=== PATIENT | female | born 1980 | race Caucasian/White ===

== ENCOUNTER 2022-04-28 14:50 | Outpatient (REF) | payer OTHER, SELFPAY ==
--- NOTE | ~2022-04-28 | XR_ITS ---
EXAMINATION: XR thoracic spine 2V, XR lumbar spine 2-3V, XR cervical spine 2V CLINICAL INFORMATION: Cervicalgia COMPARISON: Cervical, thoracic, and lumbar spine radiographs 12/20/2015 TECHNIQUE: 3 views cervical spine; AP and lateral thoracic spine; AP and lateral views lumbar spine FINDINGS: Cervical spine: C1 to top of T1 are visible on the lateral view. No subluxation. No fracture or prevertebral soft tissue swelling. Atlantodens interval and C1-C2 alignment are maintained. Status post ACDF at C5-C6 with intact plate and screw fixation and solid ankylosis of the vertebral bodies. Mild disc degenerative changes at C4-C5 above the fused level with mild disc height loss, endplate sclerosis and proliferative change. Intervertebral disc space heights otherwise maintained. Thoracic spine: Normal alignment of the thoracic spine. No subluxation. No fracture. Intervertebral disc heights appear maintained. Limited visualization of the upper most thoracic spine on the lateral view due to overlying structures. Lumbar spine: Normal alignment of the lumbar spine. No subluxation or fracture. Vertebral body heights and intervertebral disc space heights are maintained. No pars defects. SI joints are congruent and intact. XR/XR cervical spine 2V IMPRESSION: 1. Status post ACDF at C5-C6 with intact plate and screw fixation and solid ankylosis of the vertebral bodies. 2. Mild disc degenerative changes at C4-C5. 3. No subluxation or fracture identified in the cervical, thoracic, or lumbar spine.
--- NOTE | ~2022-04-28 | XR_ITS ---
EXAMINATION: XR thoracic spine 2V, XR lumbar spine 2-3V, XR cervical spine 2V CLINICAL INFORMATION: Cervicalgia COMPARISON: Cervical, thoracic, and lumbar spine radiographs 12/20/2015 TECHNIQUE: 3 views cervical spine; AP and lateral thoracic spine; AP and lateral views lumbar spine FINDINGS: Cervical spine: C1 to top of T1 are visible on the lateral view. No subluxation. No fracture or prevertebral soft tissue swelling. Atlantodens interval and C1-C2 alignment are maintained. Status post ACDF at C5-C6 with intact plate and screw fixation and solid ankylosis of the vertebral bodies. Mild disc degenerative changes at C4-C5 above the fused level with mild disc height loss, endplate sclerosis and proliferative change. Intervertebral disc space heights otherwise maintained. Thoracic spine: Normal alignment of the thoracic spine. No subluxation. No fracture. Intervertebral disc heights appear maintained. Limited visualization of the upper most thoracic spine on the lateral view due to overlying structures. Lumbar spine: Normal alignment of the lumbar spine. No subluxation or fracture. Vertebral body heights and intervertebral disc space heights are maintained. No pars defects. SI joints are congruent and intact. XR/XR lumbar spine 2-3V IMPRESSION: 1. Status post ACDF at C5-C6 with intact plate and screw fixation and solid ankylosis of the vertebral bodies. 2. Mild disc degenerative changes at C4-C5. 3. No subluxation or fracture identified in the cervical, thoracic, or lumbar spine.
--- NOTE | ~2022-04-28 | XR_ITS ---
EXAMINATION: XR thoracic spine 2V, XR lumbar spine 2-3V, XR cervical spine 2V CLINICAL INFORMATION: Cervicalgia COMPARISON: Cervical, thoracic, and lumbar spine radiographs 12/20/2015 TECHNIQUE: 3 views cervical spine; AP and lateral thoracic spine; AP and lateral views lumbar spine FINDINGS: Cervical spine: C1 to top of T1 are visible on the lateral view. No subluxation. No fracture or prevertebral soft tissue swelling. Atlantodens interval and C1-C2 alignment are maintained. Status post ACDF at C5-C6 with intact plate and screw fixation and solid ankylosis of the vertebral bodies. Mild disc degenerative changes at C4-C5 above the fused level with mild disc height loss, endplate sclerosis and proliferative change. Intervertebral disc space heights otherwise maintained. Thoracic spine: Normal alignment of the thoracic spine. No subluxation. No fracture. Intervertebral disc heights appear maintained. Limited visualization of the upper most thoracic spine on the lateral view due to overlying structures. Lumbar spine: Normal alignment of the lumbar spine. No subluxation or fracture. Vertebral body heights and intervertebral disc space heights are maintained. No pars defects. SI joints are congruent and intact. XR/XR thoracic spine 2V IMPRESSION: 1. Status post ACDF at C5-C6 with intact plate and screw fixation and solid ankylosis of the vertebral bodies. 2. Mild disc degenerative changes at C4-C5. 3. No subluxation or fracture identified in the cervical, thoracic, or lumbar spine.
== END 2022-04-28 14:51 | disposition home or self-care (01) ==
LOC: HO.HMGCX 14:50
PROVIDERS: Visit Provider Nurse Practitioner Family
DX: M54.2 Cervicalgia (principal); M54.9 Dorsalgia, unspecified; V89.2XXA Person injured in unspecified motor-vehicle accident, traffic, initial encounter
CPT/HCPCS: 72040; 72070; 72100

== ENCOUNTER 2024-07-29 13:22 | Outpatient (AMB) | payer MEDICARE, OTHER, SELFPAY ==
--- NOTE | 2024-07-29 13:26 | MHC.OFFVIS ---
Vital Signs 07/29/24 13:29 Height 5 ft 1 in Weight 110 lb 0.171 oz BMI 20.8 BP 100/80 Blood Pressure Location Rt brachial Position Sitting Pulse 93 Pulse Source Pulse Oximeter Pulse Oximetry (%) 97 Oxygen Delivery Method Room Air Intake Visit Reasons: Intake Note: Patient presents today for an visit. Marketing Team Lead Required: No Accompanied by: Self / Same As Patient Allergies Sulfa (Sulfonamide Antibiotics) Allergy (Unknown, Verified 07/29/24 13:37) Hives HPI HPI : Details: She had c-spine surgery 05/2024 (x3). Prior history of diskectomy. After 2nd surgery when she was participating in physical therapy she developed paraesthesia in her arms with weakness. She was dropping things. After surgery paresthesia and strength has improved. off of NSAIDs and immunosupression for 3 months. Cleared to resume tx by surgeon today. She has had recurrent ulcers on her skin on the anterior chest and upper extremities. She has joint. In all her joints. No joint swelling. She was on Simponi infusion until her C-spine surgery. She required IV fluids with Simponi to prevent infusion reaction. IV fluids helped her POTS. While on Simponi she had palpitations and her infusion rate was decrease in increased. Review of Systems Const All systems reviewed & are unremarkable except as noted in HPI and below Physical Exam Vital Signs: Last Vital Signs Pulse 93 07/29/24 13:29 BP 100/80 07/29/24 13:29 Pulse Ox 97 07/29/24 13:29 Oxygen Delivery Method Room Air 07/29/24 13:29 BMI result Body Mass Index 20.8 Const Other: General: Comfortable CVS: RRR Respiratory: clear to auscultation bilaterally. Good respiratory effort Skin: Ulcers present on anterior chest and extremities MSK: Tender to palpate MCPs, PIPs of bilateral hands. She is able to ostomy care nurse my hands. Normal range of motion of upper extremity and lower extremity. Tender bilateral knees and ankles. No synovitis. Normal range of motion of lower extremities. Positive TIFFANY. Assessment & Plan Assessment & Plan (1) Behcet disease with multisystem involvement: Comment: Uncontrolled polyarthralgias and skin ulcers off of immunosuppressive therapy for C-spine surgery for 3 months. She had a visit with her orthopedic surgeon who has informed her that she can resume her regimen. Rheumatology history: Manifesting with oral/genital/intestinal/skin ulcers, polyarthralgias and sacroiliitis. Failed MMF, AZA, monotherapy with colchicine, monotherapy with methotrexate, prednisone for oral and skin ulcer management. Oral and skin ulcers have been controlled on combination Otezla and colchicine. 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 Right eye scleritis 2013. Left eye scleritis November 2010 (Dr. Hernandez [facility]). No confirmed uveitis. Left eye vision loss July 2004 unclear etiology after extensive evaluation with multiple ophthalmologists and neuro recreational programs director ([facility], [facility], [facility], local recreational programs director in [facility]). She has had a history of left trochanteric bursitis treated with cortisone injection May 2021. She has had sacroiliitis on MRI 2010. HLA B27 negative. Failed Remicade, Humira, Cimzia. Simponi Aria 2023-. Code(s): M35.2 - Behcet's disease Category: Medical Plan: Labs for disease and drug monitoring ordered. A fter lab results are back I will send prescription for her to resume colchicine 1.2 mg in the morning and 0.6 mg in the evening. She will then reduce dose of colchicine to 0.6 mg b.i.d. when skin ulcers are controlled. I will also send prescription for methotrexate 17.5 mg once weekly and leucovorin 5 mg the day after she takes methotrexate and diclofenac 50 mg b.i.d. She will need PA for Simponi 2 milligram/kilogram every 8 weeks IV infusion I am requesting records of clinic notes from 2023, infusion notes, results of HLA B51, HLA B27, QuantiFERON and hepatitis-B/C panel, MRI pelvis, MRI hip, [facility] Requesting C-spine x-ray from orthopedic surgeon's office post surgery Return to clinic in 3 months Orders: Orders Alanine Aminotransferase Today Z79.60 - skilled nursing (current) use of unspecified immunomodulators and immunosuppressants Complete Blood Count Auto Diff Today Z79.60 - predatory animal exterminator (current) use of unspecified immunomodulators and immunosuppressants Aspartate Amino Transferase Today Z79.60 - skilled nursing (current) use of unspecified immunomodulators and immunosuppressants T Spot TB Today M35.2 - Behcet's disease Sjogren's Antibodies Today H35.3190 - Nonexudative age-related macular degeneration, unspecified eye, stage unspecified Creatinine Today Z79.60 - predatory animal exterminator (current) use of unspecified immunomodulators and immunosuppressants Erythrocyte Sedimentation Rate Today Z79.899 - Other supervisor intermediates (current) drug therapy C Reactive Protein Today Z79.899 - Other residential (current) drug therapy Hepatitis B,C Profile Today M35.2 - Behcet's disease Coding Level of Care Code Est Pt Level 4 (83726) Complex EM visit Add On G2211 Diagnoses Behcet disease with multisystem involvement M35.2 Time Spent (min) 30
[2024-07-29 13:29] VITALS: BP 100/80; PULSE 93; O2SAT 97; BMI 20.8
--- OUTSIDE RECORDS SUMMARY | 2024-07-29 14:44 | XMS_ITS | Clinical Summary ---
Author Organization [facility] it Address [address] [place] [address] Care Team Providers Care Pit Clerk Name Role Phone Padmini Pierson MD Primary Care Provider [phone] Surgical History Surgery Date Site/Laterality Comments CHOLECYSTECTOMY PROCEDURE: [place] LAPAROSCOPY SURG CHOLECYSTECTOMY SECTION PROCEDURE: HISTORICAL DELIVERY OTHER SURGICAL HISTORY 2013 Left PROCEDURE: [place] UNLISTED PROCEDURE PELVIS/HIP JOINT; COMMENT: labral tear OTHER SURGICAL HISTORY - 2015 PROCEDURE: [place] ARTHRD ANT INTERBODY MIN DSC CRV BELOW C2 Medical History Medical History Date Comments Cataract 05/25/2019 DX:Cataract; COM MENT: On right Chronic GERD DX:Chronic GERD Rib fracture DX:Rib fracture Stable asthma DX:Stable asthma Ankylosing spondylitis (CMS/ HCC V24, CMS/HCC V28) DX:Ankylosing spondylitis (H CC) Behcet's disease (CMS/HCC V2 4, CMS/HCC V28) DX:Behcet's disease (HCC) Family History Medical History Relation Name Comments Other: adopted Daughter Other: IBS Father Coronary artery disease Maternal Grandfather Lung cancer Maternal Grandfather Other: autoimmune heart disease Mother Other: factor V leiden Mother Other: factor V leiden Sister Other: mouth ulcers Son 11 years Relation Name Status Comments Daughter Alive Father Maternal Grandfather Mother Sister Son Alive Social History Tobacco Use Types Packs/Day Years Used Date Smoking Tobacco: Former Smokeless Tobacco: Never Comments Unknown Sex and Gender Information Value Date Recorded Sex Assigned at Not on file Legal Sex Female 6:53 PM EST Gender Identity Not on file Sexual Orientation Not on file Obstetrics History Last Filed Vital Signs Vital Sign Reading Time Taken Comments Blood Pressure 100/70 11/27/2023 8:51 AM EDT Sit ting L Arm Pulse 65 11/27/2023 8:51 AM EDT Temperature - - Respiratory Rate - - Oxygen Saturation - - Inhaled Oxygen Concentration - - Weight 49.9 kg (110 lb) 11/27/2023 8:51 AM EDT Height 154.9 cm (5' 1 ) 11/27/2023 8:51 AM EDT Body Mass Index 20.78 11/27/2023 8:51 AM EDT Plan of Treatment Health Maintenance Due Date Last Done Comments Breast Cancer Screening 1982 COVID-19 Vaccine (#1) 06/29/1987 DTaP,Tdap,and Td Vaccines (1 - Tdap) 2001 Hepatitis B Vaccines (1 of 3 - 19+ 3-dose series) 2001 Cervical Cancer Screening: P ap Smear 06/29/2003 Cholesterol Screening (Lipid Panel) 03/03/2022 Depression Screening 03/03/2022 HIV Screening 03/03/2022 Hepatitis C Screening 03/03/2022 Social Influencers of Health Screening 03/03/2022 Hypertension/CHF/CAD Annual BMP Blood Test 01/13/2024 Influenza Vaccine (Season Ended) 2024 HIB Vaccines Aged Out No longer eligi ble based on patient's age to complete this topic HPV Vaccines Aged Out No longer eligi ble based on patient's age to complete this topic Hepatitis A Vaccines Aged Out No long er eligible based on patient's age to complete this topic IPV Vaccines Aged Out No longer eligi ble based on patient's age to complete this topic MMR Vaccines Aged Out No longer eligi ble based on patient's age to complete this topic Meningococcal ACWY Vaccine Aged Out N o longer eligible based on patient's age to complete this topic Meningococcal B Vaccine Aged Out No l onger eligible based on patient's age to complete this topic Pneumococcal Vaccine: Pediat rics (0 to 5 Years) and At-Risk Patients (6 to 64 Years) Aged Out No longer eligible b ased on patient's age to complete this topic RSV Immunization Patients Un meron 20 months Aged Out No longer eligible b ased on patient's age to complete this topic Varicella Vaccines Aged Out No longer eligible based on patient's age to complete this topic Care Teams Pit Clerk Relationship Specialty Start Date End Date Padmini Pierson MD [address] [place] [address] PCP - General Internal Medicine 11/27/17
== END 2024-07-29 14:22 | disposition home or self-care (01) ==
LOC: HO.RHES 13:23
PROVIDERS: PCP Nurse Practitioner Family; Visit Provider Internal Medicine Rheumatology
DX: M35.2 Behcet's disease (principal)
CPT/HCPCS: 99214; G2211

== ENCOUNTER 2024-07-29 13:22 | Outpatient (REF) | payer MEDICARE, OTHER, SELFPAY ==
--- OUTSIDE RECORDS SUMMARY | 2024-07-29 15:43 | XMS_ITS | Clinical Summary ---
Author Organization [facility] it Address [address] [place] [address] Care Team Providers Care Tank Assembler Name Role Phone Padmini Pierson MD Primary Care Provider [phone] Surgical History Surgery Date Site/Laterality Comments CHOLECYSTECTOMY [...] age to complete this topic Care Teams Tank Assembler Relationship Specialty Start Date End Date Padmini Pierson MD [address] [place] [address] PCP - General Internal Medicine 11/27/17
[2024-07-29 18:04] LABS: MANUAL DIFF FLAG NO
[2024-07-29 18:12] LABS: Basophils Percent Auto 0.3 % (0-2); Eosinophils Absolute Auto 0.4 X10*3/uL (0.0-0.4); Eosinophils Percent Auto 6.6 % (0-4); Hematocrit 36.5 % (37.0-47.0); Hemoglobin 11.9 g/dl (12.0-16.0); Imm Gran Abs Auto 0.01 X10*3/uL (0.00-0.03); Imm Gran Pct Auto 0.2 % (0.0-0.4); Lymphocytes Absolute Auto 2.7 X10*3/uL (1.2-4.9); Lymphocytes Percent Auto 41.9 % (20-40); Mean Corpuscular HGB Conc 32.6 g/dl (31.0-35.0); Mean Corpuscular Hemoglobin 29.8 pg (27.0-33.0); Mean Corpuscular Volume 91.3 fL (80.0-98.0); Mean Platelet Volume 11.2 fL (9.4-12.3); Monocytes Absolute Auto 0.5 X10*3/uL (0.1-1.2); Monocytes Percent Auto 8.5 % (2-11); Neutrophils Absolute Auto 2.7 x10*3/uL (2.0-8.3); Neutrophils Percent Auto 42.5 % (45-73); Platelet Count 295 X10*3/uL (160-400); Red Cell Distribution Width 12.8 % (11.0-16.0); White Blood Count 6.3 X10*3/uL (4.8-10.8)
[2024-07-29 18:38] LABS: Alanine Aminotransferase 19 U/L (0-31); Aspartate Amino Transferase 30 U/L (5-31); C Reactive Protein < 0.04 mg/dL (< or = 0.50); Estimated Glomerular Filt Rate > 60
[2024-07-29 18:53] LABS: Erythrocyte Sedimentation Rate 5 MM/HR (0-20)
[2024-07-30 08:15] LABS: HBS Num1 6.49 mIU/mL (0-7.99); HBc Num1 0.31 S/CO (0.00-0.79); HBsAGNum1 0.28 S/CO (0.00-0.99); Hepatitis B Core Antibody Nonreactive (Nonreactive); Hepatitis B Surface Antigen Negative (Negative); ~HepC Num1 0.13 S/CO (0.00-0.79); ~Hepatitis B Surface Antibody NONREACTIVE (Nonreactive); ~Hepatitis C Antibody Nonreactive (Nonreactive)
[2024-07-30 23:29] LABS: Antibody to SS-A Antigen <1.0 NEG AI (<1.0 NEG); Antibody to SS-B Antigen <1.0 NEG AI (<1.0 NEG)
[2024-08-01 11:13] LABS: TS Negative Control Passed; TS Panel A 0; TS Panel B 0; TS Positive Control Passed; TSpotTB Negative (Negative)
== END 2024-07-29 13:23 | disposition home or self-care (01) ==
LOC: HO.HKASLDS 13:22
PROVIDERS: Visit Provider Internal Medicine Rheumatology
DX: M35.2 Behcet's disease (principal); Z79.60 Long term (current) use of unspecified immunomodulators and immunosuppressants; Z79.899 Other long term (current) drug therapy; H35.3190 Nonexudative age-related macular degeneration, unspecified eye, stage unspecified
CPT/HCPCS: 36415; 82565; 84450; 84460; 85025; 85652; 86140; 86235; 86481; 86704; 86706; 86803; 87340; 99212

== ENCOUNTER 2025-02-17 12:45 | Outpatient (REF) | payer MEDICARE, MEDICAID, SELFPAY ==
--- OUTSIDE RECORDS SUMMARY | 2025-02-12 23:59 | XMS_ITS | Continuity of Care Document ---
Author Organization [facility] Address [address] [place] [address]- Care Team Providers Care Esters And Emulsifiers Supervisor Name Role Phone Padmini Pierson MD Primary Care Physician Encounter [facility] Date(s): 01/13/25 - 02/12/25 [facility] [address] [place], [place] [address] Encounter Type: Triage Allergies, Adverse Reactions, Alerts Substance Criticality Severity Reaction Reaction Severity Status Bactrim rash Active Glutens Active Lactose Active Immunizations Given and Recorded Vaccine Date Status Refusal Reason influenza virus vaccine, inactivated 1 01/05/25 Gi emerita influenza virus vaccine, inactivated 01/23/23 Give n influenza virus vaccine, inactivated 01/22/22 Krish rded influenza virus vaccine, inactivated 01/01/20 Krish rded influenza virus vaccine, inactivated 03/06/18 Give n influenza virus vaccine, inactivated 2 01/29/17 Gi emerita influenza virus vaccine, inactivated 3 01/22/16 Re corded influenza virus vaccine, inactivated 02/17/15 Give n influenza virus vaccine, inactivated 12/22/13 Give n influenza virus vaccine, inactivated 12/12/12 Give n influenza virus vaccine, inactivated 4 01/04/12 Gi emerita influenza virus vaccine, inactivated 5 03/16/11 Gi emerita influenza virus vaccine, inactivated 6 01/16/10 Gi emerita SARS-CoV-2 mRNA (fkwmbum-msde-rwgce) vax 07/28/21 Recorded SARS-CoV-2 (COVID-19) mRNA BNT-162b2 vac 01/02/21 Recorded SARS-CoV-2 (COVID-19) mRNA BNT-162b2 vac 06/20/20 Recorded SARS-CoV-2 (COVID-19) mRNA BNT-162b2 vac 05/30/20 Recorded tetanus-diphtheria toxoids (Td) 06/10/18 Given Influenza Virus Vaccine (oldterm) 7 01/18/09 Given Influenza Virus Vaccine (oldterm) 8 01/26/08 Given Tet/Diphth/Acel, Pertussis (oldterm) 9 01/26/08 Gi emerita 1Result Comment: [facility] [id number] 2Result Comment: [01/29/2017] 2016-2017FLU VACCINE [facility] [id number] 3Result Comment: [04/23/2016] PER PT 4Admin Note: [facility] 5Admin Note: PER PT 6Admin Note: per pt 7Admin Note: per pt other Md 8Admin Note: sonofi-pt meets criteria/no incedent/pt denies allergy to flu injection. pt also statesno flu symptoms 9Admin Note: OFFERED/ DECLINED Medications 25G x 1 inch Bancroft 25G x 1 inch Bancroft, See Instructions, # 15 each, Refills 3, Tot. Refills 3, Maintenance, Pt to use 1 syringe weekly x 4 weeks to administer Vitamin B12, then 1 syringe monthly thereafter. dx: E53.8, 03/24/24 12:23:00 PM EST, Supply, 155, cm, 03/24/24 11:51:00 EST, Height, 50.4, kg, 02/13/24 13:29:00 EST, Dry Weight Start Date: 03/24/24 Status: Ordered Medication Dispense Status: Completed Quantity: 15.0 Unit: each Total Allowed Fills: 4 Fills Dispensed: 0 3ML Syringe w/ safety needle 23Gx1 3ML Syringe w/ safety needle 23Gx1 , See Instructions, # 15 each, Refills 0, Tot. Refills 0, Maintenance, Pt to use 1 syringe weekly x 4 weeks to administer Vitamin B12, then 1 syringe monthly thereafter. dx: E53.8, 12/22/21 10:46:00 AM EDT, Supply, 155, cm, 12/22/21 10:03:00 EDT, Height, 52.4, kg, 10/10/20 11:13:00 EDT, Dry Weight Start Date: 12/22/21 Status: Ordered Medication Dispense Status: Completed Quantity: 15.0 Unit: each Total Allowed Fills: 1 Fills Dispensed: 0 colchicine 0.6 mg oral tablet Refills 0, Maintenance, 07/24/22 12:12:00 PM EDT, Partial fill upon patient request if the prescription is for a schedule II opioid drug. Start Date: 07/24/22 Status: Ordered Medication Dispense Status: Completed Total Allowed Fills: 1 Fills Dispensed: 0 cyanocobalamin 1000 mcg/ml injectable solution See Instructions, INJECT 1ML ONCE 1 WEEK FOR 4 WEEKS, THEN ONCE MONTHLY THEREAFTER, # 30 mL, 3 Refills, Maintenance, 01/05/25 12:15:00 PM EDT, [facility] #[id number], 155, cm, 01/05/25 11:48:00 EDT, Height, 49.4, kg, 01/05/25 11:48:00 EDT, Dry Weight Start Date: 01/05/25 Status: Ordered Medication Dispense Status: Completed Quantity: 30.0 Unit: mL Total Allowed Fills: 4 Fills Dispensed: 0 diazepam 5 mg oral tablet 5 mg, 1, tablet, By Mouth, Daily, for 28 days, # 28 tablet, Refills 0, Tot. Refills 0, Acute 03/02/25 8:59:00 PM EST, 02/02/25 8:59:00 PM EST, Route to Pharmacy Electronically, [facility] #[id number], Partial fill upon patient request if the prescription is for a schedule II opioid drug., 155, cm, 01/05/25 11:48:00 EDT, Height, 49.4, kg, 01/05/25 11:48:00 EDT, Dry Weight Start Date: 02/02/25 Stop Date: 03/02/25 Status: Ordered Medication Dispense Status: Completed Quantity: 28.0 Unit: tablet Total Allowed Fills: 1 Fills Dispensed: 0 diclofenac sodium 50 mg oral delayed release tablet 1 tablet = 50 mg, By Mouth, 2 times a day, # 60 tablet, 0 Refills, Maintenance, 08/10/24 2:41:00 PM EDT, [facility], Partial fill upon patient request if the prescription is for a schedule II opioid drug. Start Date: 08/10/24 Status: Ordered Medication Dispense Status: Completed Quantity: 60.0 Unit: tablet Total Allowed Fills: 1 Fills Dispensed: 0 duloxetine 30 mg oral enteric coated capsule 1 capsule, By Mouth, 2 times a day, # 180 capsule, 2 Refills, Maintenance, 10/28/24 10:30:00 AM EDT,[id number], 155, cm, 10/13/24 11:38:00 EDT, Height, 48, kg, 10/13/24 11:38:00 EDT, Dry Weight Start Date: 10/28/24 Status: Ordered Medication Dispense Status: Completed Quantity: 180.0 Unit: capsule Total Allowed Fills: 1 Fills Dispensed: 0 Fioricet oral capsule 1 capsule, By Mouth, 3 times a day, PRN as needed, # 30 capsule, 0 Refills, Maintenance, 05/04/24 12:00:00 PM EST, Capsule, [facility]/pharmacy #[id number], Partial fill upon patient request if the prescription is for a schedule II opioid drug., 1 capsule By Mouth 3 times a day,PRN:as needed, 155, cm, 05/04/24 11:38:00 EST, Height, 50.9, kg, 05/04/24 11:38:00 EST, Dry Weight Start Date: 05/04/24 Status: Ordered Medication Dispense Status: Completed Quantity: 30.0 Unit: capsule Total Allowed Fills: 1 Fills Dispensed: 0 Insulin Syringe, BD Ultra-Fine 1 cc 30 G x 12.7 mm (1/2in) See Instructions, # 60 each, Maintenance, use for b12 shots once a week then once a month, 09/20/21 1:51:00 PM EDT, Supply, 155, cm, 12/12/20 13:14:00 EDT, Height, 52.4, kg, 10/10/20 11:13:00 EDT, DryWeight Start Date: 09/20/21 Status: Ordered Medication Dispense Status: Completed Quantity: 60.0 Unit: each Total Allowed Fills: 1 Fills Dispensed: 0 leucovorin 5 mg oral tablet 1 tablet = 5 mg, Every Harjinder, 0 Refills, Maintenance, 09/20/21 1:47:00 PM EDT, Partial fill upon patient request if the prescription is for a schedule II opioid drug. Start Date: 09/20/21 Status: Ordered Medication Dispense Status: Completed Total Allowed Fills: 1 Fills Dispensed: 0 Lyrica 25 mg oral capsule 1 capsule = 25 mg, By Mouth, 3 times a day, ., # 90 capsule, 5 Refills, Maintenance, 01/05/25 12:23:00 PM EDT, Capsule, [facility] #[id number], Partial fill upon patient request if the prescription is for a schedule II opioid drug., 155, cm, 01/05/25 11:48:00 EDT, Height, 49.4, kg, 01/05/25 11:4 8:00 EDT, Dry Weight Start Date: 01/05/25 Status: Ordered Medication Dispense Status: Completed Quantity: 90.0 Unit: capsule Total Allowed Fills: 6 Fills Dispensed: 0 Indications: Ankylosing spondylitis of unspecified sites in spine; methotrexate 2.5 mg oral tablet 8 tablet = 20 mg, By Mouth, Every week, # 4 tablet, 0 Refills, Maintenance, 08/10/24 2:41:00 PM EDT,Tablet, Partial fill upon patient request if the prescription is for a schedule II opioid drug. Start Date: 08/10/24 Status: Ordered Medication Dispense Status: Completed Quantity: 4.0 Unit: tablet Total Allowed Fills: 1 Fills Dispensed: 0 metoclopramide 10 mg oral tablet TAKE 1 TABLET BY MOUTH EVERY 6 HOURS NEEDED FOR NAUSEA/VOMITING Start Date: 09/03/24 Status: Ordered Medication Dispense Status: Completed Total Allowed Fills: 1 Fills Dispensed: 0 midodrine 5 mg oral tablet 5 mg, 1, tablet, By Mouth, 2 times a day, Refills 0, Maintenance, 12/11/23 1:01:00 PM EDT, Partial fill upon patient request if the prescription is for a schedule II opioid drug. Start Date: 12/11/23 Status: Ordered Medication Dispense Status: Completed Total Allowed Fills: 1 Fills Dispensed: 0 mirtazapine 15 mg oral tablet 1 tablet = 15 mg, By Mouth, Daily at bedtime, # 30 tablet, 6 Refills, Maintenance, 10/13/24 12:24:00PM EDT, Tablet, [facility]/pharmacy #[id number], Partial fill upon patient request if the prescription is for a schedule II opioid drug., 155, cm, 10/13/24 11:38:00 EDT, Height, 48, kg, 10/13/24 11:38:00 EDT, DryWeight Start Date: 10/13/24 Status: Ordered Medication Dispense Status: Completed Quantity: 30.0 Unit: tablet Total Allowed Fills: 7 Fills Dispensed: 0 Indications: Major depressive disorder, recurrent, unspecified; morphine 15 mg/8 to 12 hr oral tablet, extended release 1 tablet = 15 mg, By Mouth, Every 12 hours, # 56 tablet, 0 Refills, Maintenance, 02/02/25 8:58:00 PMEST, ER Tablet, [facility] #[id number], Partial fill upon patient request if the prescription is for a schedule II opioid drug., 155, cm, 01/05/25 11:48:00 EDT, Height, 49.4, kg, 01/05/25 11:48:00 EDT, Dry Weight Start Date: 02/02/25 Stop Date: 03/02/25 Status: Ordered Medication Dispense Status: Completed Quantity: 56.0 Unit: tablet Total Allowed Fills: 1 Fills Dispensed: 0 Multivitamin 1 tablet, By Mouth, Daily, 0 Refills, Maintenance, 08/29/13 4:55:38 PM EDT Start Date: 08/29/13 Status: Ordered Medication Dispense Status: Completed Total Allowed Fills: 1 Fills Dispensed: 0 Narcan 4 mg/0.1 mL nasal spray 1 sprays = 4 mg, Nares, Both, Once, # 2 each, 0 Refills, Soft Stop, 06/01/24 3:49:00 PM EST, [facility]/pharmacy #[id number], Partial fill upon patient request if the prescription is for a schedule II opioid drug.,155, cm, 05/21/24 9:18:00 EST, Height, 49.7, kg, 05/21/24 9:18:00 EST, Dry Weight Start Date: 06/01/24 Status: Ordered Medication Dispense Status: Completed Quantity: 2.0 Unit: each Total Allowed Fills: 1 Fills Dispensed: 0 omeprazole 40 mg oral enteric coated capsule 1 capsule, By Mouth, Daily, # 90 capsule, 1 Refills, Maintenance, 05/23/23 12:33:00 PM EST, [id number], 155, cm, 05/01/23 10:02:00 EST, Height, 49.9, kg, 01/23/23 9:46:00 EDT, Dry Weight Start Date: 05/23/23 Status: Ordered Medication Dispense Status: Completed Quantity: 90.0 Unit: capsule Total Allowed Fills: 1 Fills Dispensed: 0 ProAir HFA 90 mcg/inh inhalation aerosol with adapter 1 puffs, Inhalation, Every 4 hours, PRN for wheezing, as needed for cough or wheezing, # 3 each, 11Refills, Maintenance, 04/30/12 8:55:51 AM EST, Aerosol, [facility]/pharmacy #[id number] Start Date: 04/30/12 Status: Ordered Medication Dispense Status: Completed Quantity: 3.0 Unit: each Total Allowed Fills: 12 Fills Dispensed: 0 Simponi 50 mg/0.5 mL subcutaneous solution 0.5 mL = 50 mg, Subcutaneous Injection, Every 30 days, # 1 each, 0 Refills, Maintenance, 01/10/24 11:58:00 AM EDT, Solution, Partial fill upon patient request if the prescription is for a schedule IIopioid drug. Start Date: 01/10/24 Status: Ordered Medication Dispense Status: Completed Quantity: 1.0 Unit: each Total Allowed Fills: 1 Fills Dispensed: 0 tiZANidine 4 mg oral capsule 1 capsule = 4 mg, By Mouth, 3 times a day, # 90 capsule, 0 Refills, Maintenance, 12/23/24 12:35:00 PM EDT, [facility] #[id number], 155, cm, 11/24/24 11:46:00 EDT, Height, 48.2, kg, 11/24/24 11:46:00 EDT, Dry Weight Start Date: 12/23/24 Status: Ordered Medication Dispense Status: Completed Quantity: 90.0 Unit: capsule Total Allowed Fills: 1 Fills Dispensed: 0 Tylenol 325 mg oral tablet 650 mg, 2, tablet, By Mouth, Every 6 hours, PRN, Refills 0, Maintenance, Pain , Mild, 10/15/20 7:47:00 AM EDT, Partial fill upon patient request if the prescription is for a schedule II opioid drug. Start Date: 10/15/20 Status: Ordered Medication Dispense Status: Completed Total Allowed Fills: 1 Fills Dispensed: 0 Vitamin C = 500 mg, By Mouth, Daily, 0 Refills, Maintenance, 08/29/13 4:56:07 PM EDT Start Date: 08/29/13 Status: Ordered Medication Dispense Status: Completed Total Allowed Fills: 1 Fills Dispensed: 0 Problem List Condition Confirmation Course Effective Dates Status H ealth Status Informant Labral tear of hip, degenerative Confirmed Active Adjustment disorder with anxiety Confirmed Active Ankylosing spondylitis Confirmed Active Asthma Confirmed Active Behcet's disease Confirmed Active Breast lump on left side at 8 o'clock position Confirmed 07/17/12 Active Cervical post-laminectomy syndrome Confirmed Active Cervical postlaminectomy syndrome Confirmed Active Cervical radiculitis s/p disectomy Confirmed Active Vitamin B12 deficiency Confirmed Active Common migraine Confirmed Active Conjunctivitis Confirmed Active Chronic, continuous use of opioids Confirmed Active Dysthymia Confirmed Active Healthy adult Confirmed Active Neuropathic pain, leg, bilateral Confirmed Active Post traumatic stress disorder (PTSD) Confirmed Active POTS (postural orthostatic tachycardia syndrome) Confirmed Active Social History Social History Type Response Smoking Status Never (less than 100 in lifetime) entered on: 05/21/24 Sexual Orientation Self described orien tation: ; Straight or heterosexual Sex Sex Representation Female (finding) Patient Care team information Care Team Personnel Name: Padmini Pierson MD Position: [facility] Physician - Primary Care Member Role: PCP Address: [address] [place] [address] Adult and Pediatric Medicine [address] Telecom: Name: Claudia Ashraf RN Position: [facility] RN Member Role: Primary Care Nurse Name: Matt Diallo RN Position: [facility] Outreach Member Role: Primary Care Nurse Name: Olman Wilson RN Position: [facility] Selwyn RN Member Role: Primary Care Nurse Name: Sammie Peter RN Position: [facility] SN Fitness Studies Teacher Member Role: Primary Care Nurse Care Team Related Persons Name: MARILIN THACKER Name: MARGARITO MCKEON Name: SINA MIRANDA Insurance Providers Guarantor name: MAITE MCKEON Health Plan Information #: 1 Payer: MEDICARE B Payer Identifier: NA Member Number: [id number] Group Number: NA Subscriber Identifier: NA Relationship to Subscriber: self Coverage Type: NA Coverage Verification Date: NA Telecom: NA Address: NA
[2025-02-17 13:02] LABS: MANUAL DIFF FLAG NO
[2025-02-17 14:01] LABS: Hematocrit 42.9 % (37.0-47.0); Hemoglobin 14.2 g/dl (12.0-16.0); Imm Gran Abs Auto 0.01 X10*3/uL (0.00-0.03); Imm Gran Pct Auto 0.1 % (0.0-0.4); Lymphocytes Absolute Auto 2.5 X10*3/uL (1.2-4.9); Mean Corpuscular HGB Conc 33.1 g/dl (31.0-35.0); Mean Corpuscular Hemoglobin 30.2 pg (27.0-33.0); Mean Corpuscular Volume 91.3 fL (80.0-98.0); NRBC Abs Auto 0.000 X10*3/uL (0.0-0.012); NRBC Pct Auto 0.0 /100WBC (0.0-0.2); Platelet Count 364 X10*3/uL (160-400); Red Blood Count 4.70 X10*6/uL (4.20-5.50); White Blood Count 7.6 X10*3/uL (4.8-10.8)
[2025-02-17 16:02] LABS: Alanine Aminotransferase 18 U/L (0-31); Aspartate Amino Transferase 21 U/L (5-31); Estimated Glomerular Filt Rate > 60
--- OUTSIDE RECORDS SUMMARY | 2025-02-18 00:30 | XMS_ITS | Encounter Summary ---
Author Organization [facility] Address [address] [place] [address] [address] [place] [address] Phone Care Team Providers Care Travel Accommodations Rater Name Role Phone Carol Briseno Unavailable [phone] Padmini Pierson MD Unavailable Jose Madsen DO Unavailable Cass Reyes PA-C Unavailable Padmini Pierson MD Primary Care Provider Encounter Details Date Type Department Care Team (Late st Contact Info) Description 02/07/2017 Ancillary Orders Virtual Department [address] [place] [address] Quentin Zamora PA [address] [place] [id number] [email or web address] Arthrodesis status Social History Tobacco Use Types Packs/Day Years Used Date Smoking Tobacco: Never Assessed Comments No Sex and Gender Information Value Date Recorded Sex Assigned at Not on file Legal Sex Female 7:57 PM EST Gender Identity Not on file Sexual Orientation Not on file documented as of this encounter Plan of Treatment Upcoming Encounters Date Type Department Care Team (Late st Contact Info) Description 03/10/2025 12:00 PM EST Office Visit [facility] Orthopaedic Spine [address] [facility], [address], [address] [place] [address] Tye Sandhu MD [address] [facility] [address] [place] [address] [email or web address] 03/10/2025 3:00 PM EST Office Visit [facility] in [address] [address] Surya Hardin MD [address] [facility], [address] [place] [address] [email or web address] documented as of this encounter Visit Diagnoses Diagnosis Arthrodesis status documented in this encounter Care Teams Travel Accommodations Rater Relationship Specialty Start Date End Date Padmini Pierson MD [address] [place] [id number] PCP - General 04/04/17 Carol Briseno PA [facility] [place] [address] Historical LMR Provider 01/17/17 2 Padmini Pierson MD [address] [place] [id number] Historical LMR Provider 01/17/17 Jose Madsen DO [address] [place] [address] Orthopedics & Sports Medicine, [place] [address] [email or web address] Historical LMR Provider 01/17/17 Cass Reyes PA-C 4 [facility] Orthopedics & Sports Medicine, [place] [address] Historical LMR Provider 01/17/17 documented as of this encounter Additional Source Comments The information contained in this document represents components of the legal health record. It is not the complete legal health record.[facility]
--- OUTSIDE RECORDS SUMMARY | 2025-02-18 00:30 | XMS_ITS | Encounter Summary ---
Author Organization [facility] Address Critical access hospital [facility] [address] [place] [address] Phone Care Team Providers Care Real Estate Branch Manager Name Role Phone Carol Briseno Unavailable [phone] Padmini Pierson MD Unavailable Jose Madsen DO Unavailable Cass Reyes PA-C Unavailable Padmini Pierson MD Primary Care Provider [phone] Encounter Details Date Type Department Care Team (Late st Contact Info) Description 09/09/2020 Procedure Pass [place] Admitting Dept - Virtual Department [address] [place] [phone] Social History Tobacco Use Types Packs/Day Years Used Date Smoking Tobacco: Former Cigarettes 0.3 1 1 - 01/25/2000 Smokeless Tobacco: Never Alcohol Use Standard Drinks/Week Comments Yes 2 (1 standard drink = 0.6 oz pur e alcohol) occ Comments No Sex and Gender Information Value Date Recorded Sex Assigned at Not on file Legal Sex Female 7:57 PM EST Gender Identity Not on file Sexual Orientation Not on file documented as of this encounter Plan of Treatment Upcoming Encounters Date Type Department Care Team (Late st Contact Info) Description 03/10/2025 12:00 PM EST Office [place] [facility] [place] [address] [facility], 3rd Floor, [address] [place] [address] Tye Sanduh MD [address] [facility] [address] [place] [address] [email or web address] 03/10/2025 3:00 PM EST Office Visit [facility] in [address] [address] Surya Hardin MD [address] [facility], [address] [place] [address] [email or web address] documented as of this encounter Visit Diagnoses Not on filedocumented in this encounter Care Teams Real Estate Branch Manager Relationship Specialty Start Date End Date Padmini Pierson MD [address] [place] [phone] PCP - General 04/04/17 Carol Briseno PA [facility] [place] [address] Historical LMR Provider 01/17/17 2 Padmini Pierson MD [address] [place] [phone] Historical LMR Provider 01/17/17 Jose Madsen DO [address] [place] [address] Orthopedics & Sports Medicine, [facility] [place] [address] Historical LMR Provider 01/17/17 Cass Reyes PA-C 4 [facility], [place] [address] Historical LMR Provider 01/17/17 documented as of this encounter Additional Source Comments The information contained in this document represents components of the legal health record. It is not the complete legal health record.[facility]
--- OUTSIDE RECORDS SUMMARY | 2025-02-18 00:30 | XMS_ITS | Encounter Summary ---
Author Organization [facility] Address [address] [place] [address] Phone Care Team Providers Care Sheet Cutting Operator Name Role Phone Carol Briseno Unavailable [phone] Padmini Pierson MD Unavailable Jose Madsen DO Unavailable [phone] Cass Reyes PA-C Unavailable [phone] Padmini Pierson MD Primary Care Provider [phone] Reason for Referral * MRI/CAT Scan - Closed Specialty Diagnoses / Procedures Referred By Letha damian Referred To Contact Radiology Diagnoses Derangement, knee internal, right Behcet's syndrome Procedures MRI Knee (Right) Quentin Zamora PA Phone: tel: fax: [email or web address] Referral ID Status Reason Start Date Expiration Date Visits Re quested Visits Authorized [id number] Closed 05/06/2020 10/31/2020 1 0 Encounter Details Date Type Department Care Team (Late st Contact Info) Description 05/04/2020 Ancillary Orders Virtual Department [address] [place] [address] Quentin Zamora PA [address] [place] [id number] [email or web address] Derangement, knee internal, right; Behcet's syndrome Social History Tobacco Use Types Packs/Day Years Used Date Smoking Tobacco: Former Cigarettes Q uit: 01/25/2000 Smokeless Tobacco: Never Comments No Sex and Gender Information Value Date Recorded Sex Assigned at Not on file Legal Sex Female 7:57 PM EST Gender Identity Not on file Sexual Orientation Not on file documented as of this encounter Plan of Treatment Upcoming Encounters Date Type Department Care Team (Late st Contact Info) Description 03/10/2025 12:00 PM EST Office Visit [facility] Orthopaedic Spine [address] [place] [address], 3rd Floor, [address] [place] [address] Tye Sandhu MD [address] [place] [address] [email or web address] 03/10/2025 3:00 PM EST Office Visit [facility] in [address] [address] Surya Hardin MD [address] [place] [address], [address] [place] [address] [email or web address] documented as of this encounter Results * MRI KNEE WITHOUT CONTRAST (RIGHT) (05/14/2020 8:07 AM EST) Anatomical Region Laterality Modality Knee Right Magnetic Resonan ce 05/14/2020 1:42 PM EST Impressions 05/14/2020 4:20 PM EST Subtotal ACL and MCL injuries, with involvement of the deep meniscofemoral fibers. Suggestion of associated MPFL sprain/partial tear. No meniscal tear. No chondral defect. Edema and low signal on T1-weighted images within the posterior lateral tibial plateau and posterior medial femoral condyle. Findings are most consistent with nondisplaced, microtrabecular fractures. Narrative 05/14/2020 4:20 PM EST TECHNIQUE: MRI KNEE WITHOUT CONTRAST (RIGHT) COMPARISON: No relevant comparison. FINDINGS: MEDIAL COMPARTMENT: No meniscal tear, cartilage defect, or subchondral bone marrow edema. LATERAL COMPARTMENT: No meniscal tear, cartilage defect, or subchondral bone marrow edema. PATELLOFEMORAL COMPARTMENT: No cartilage defect or subchondral bone marrow edema. TENDONS: Quadriceps, patellar and popliteus tendons intact. LIGAMENTS: There is increased signal and fiber irregularity in the mid substance of the anterior cruciate ligament, consistent with subtotal tear. Edema seen on both sides of the tibial collateral ligament, with discontinuity of the deep meniscofemoral fibers (6; 18), consistent with subtotal proximal MCL tear. Edema and fiber irregularity in the medial patellofemoral ligament (MPFL), which may represent sprain/partial tear. Lateral collateral ligament appears intact. BONE: Edema in the posterior proximal tibial plateau, with associated low signal on T1, which likely represents microtrabecular fracture. Similar signal characteristics are seen in the posterior medial femoral condyle. No marrow infiltration. JOINT: Circumferential joint line edema. Large joint effusion and mild synovitis. Trace Zuniga's cyst. Procedure Note Kiko Mann MD - 05/14/2020 TECHNIQUE: MRI KNEE WITHOUT CONTRAST (RIGHT) COMPARISON: No relevant comparison. FINDINGS: MEDIAL COMPARTMENT: No meniscal tear, cartilage defect, or subchondralbone marrow edema. LATERAL COMPARTMENT: No meniscal tear, cartilage defect, or subchondralbone marrow edema. PATELLOFEMORAL COMPARTMENT: No cartilage defect or subchondral bone marrowedema. TENDONS: Quadriceps, patellar and popliteus tendons intact. LIGAMENTS: There is increased signal and fiber irregularity in the midsubstance of the anterior cruciate ligament, consistent with subtotaltear. Edema seen on both sides of the tibial collateral ligament, withdiscontinuity of the deep meniscofemoral fibers (6; 18), consistent withsubtotal proximal MCL tear. Edema and fiber irregularity in the medialpatellofemoral ligament (MPFL), which may represent sprain/partial tear.Lateral collateral ligament appears intact. BONE: Edema in the posterior proximal tibial plateau, with associated lowsignal on T1, which likely represents microtrabecular fracture. Similarsignal characteristics are seen in the posterior medial femoral condyle.No marrow infiltration. JOINT: Circumferential joint line edema. Large joint effusion and mildsynovitis. Trace Zuniga's cyst. IMPRESSION: Subtotal ACL and MCL injuries, with involvement of the deep meniscofemoralfibers. Suggestion of associated MPFL sprain/partial tear. No meniscaltear. No chondral defect. Edema and low signal on T1-weighted images within the posterior lateraltibial plateau and posterior medial femoral condyle. Findings are mostconsistent with nondisplaced, microtrabecular fractures. Quentin ASIF IMG MR EXTREMITY Final Resu lt documented in this encounter Visit Diagnoses Diagnosis Derangement, knee internal, right Behcet's syndrome Derangement, knee internal, right Behcet's syndrome documented in this encounter Care Teams Sheet Cutting Operator Relationship Specialty Start Date End Date Padmini Pierson MD [address] [place] [address] PCP - General 04/04/17 Carol Briseno PA [facility] [place] [address] Historical LMR Provider 01/17/17 2 Padmini Pierson MD [address] [place] [address] Historical LMR Provider 01/17/17 Jose Madsen DO 4 [facility], [place] [address] Historical LMR Provider 01/17/17 Cass Reyes PA-C 4 [facility], [place] [address] Historical LMR Provider 01/17/17 documented as of this encounter Additional Source Comments The information contained in this document represents components of the legal health record. It is not the complete legal health record.[facility]
--- OUTSIDE RECORDS SUMMARY | 2025-02-18 00:30 | XMS_ITS | Encounter Summary ---
Author Organization [facility] Address [address] [place] [address] Phone Care Team Providers Care Hospice Manager Name Role Phone Carol Briseno Unavailable [phone] Padmini Pierson MD Unavailable Jose Madsen DO Unavailable Cass Reyes PA-C Unavailable [phone] Padmini Pierson MD Primary Care Provider [phone] Encounter Details Date Type Department Care Team (Late st Contact Info) Description 05/04/2020 Procedure Pass [facility], [address] [address] Social History Tobacco Use Types Packs/Day Years Used Date Smoking Tobacco: Former Cigarettes Q uit: 01/25/2000 Smokeless Tobacco: Never Comments No Sex and Gender Information Value Date Recorded Sex Assigned at Not on file Legal Sex Female 7:57 PM EST Gender Identity Not on file Sexual Orientation Not on file documented as of this encounter Last Filed Vital Signs Vital Sign Reading Time Taken Comments Blood Pressure - - Pulse - - Temperature - - Respiratory Rate - - Oxygen Saturation - - Inhaled Oxygen Concentration - - Weight 52.2 kg (115 lb) 05/04/2020 2:17 PM EST Height 154.9 cm (5' 1 ) 05/04/2020 2:17 PM EST Body Mass Index 21.73 05/04/2020 2:17 PM EST documented in this encounter Plan of Treatment Upcoming Encounters Date Type Department Care Team (Late st Contact Info) Description 03/10/2025 12:00 PM EST Office Visit [facility] [address] [facility], 3rd Floor, [address] [place] [address] Tye Sandhu MD [address] [facility] [address] [place] [address] [email or web address] 03/10/2025 3:00 PM EST Office Visit [facility] in [address] [address] Surya Hardin MD [address] [place] [address], [address] [place] [address] maria [email or web address] documented as of this encounter Visit Diagnoses Not on filedocumented in this encounter Care Teams Hospice Manager Relationship Specialty Start Date End Date Padmini Pierson MD [address] [place] [address] PCP - General 04/04/17 Carol Briseno PA [facility] [place] [address] Historical LMR Provider 01/17/17 2 Padmini Pierson MD [address] [place] [address] Historical LMR Provider 01/17/17 Jose Madsen DO [address] [place] [address] Orthopedics & Sports Medicine, [facility] [place] [address] [email or web address] Historical LMR Provider 01/17/17 Cass Reyes PA-C [address] [place] [address] Orthopedics & Sports Medicine, [place] [address] [email or web address] Historical LMR Provider 01/17/17 documented as of this encounter Additional Source Comments The information contained in this document represents components of the legal health record. It is not the complete legal health record.[facility]
--- OUTSIDE RECORDS SUMMARY | 2025-02-18 00:30 | XMS_ITS | Encounter Summary ---
Author Organization [facility] Address [address] [facility] [address] [place] [address] Phone Care Team Providers Care Juice Standardizer Name Role Phone Jose Madsen DO Unavailable [phone] Cass Reyes PA-C Unavailable [phone] Padmini Pierson MD Primary Care Provider [phone] Encounter Details Date Type Department Care Team (Late st Contact Info) Description 06/07/2023 Procedure Pass [facility] PERIOPERATIVE DEPT [address] [place] [address] Social History Tobacco Use Types Packs/Day Years Used Date Smoking Tobacco: Former Cigarettes 0.3 1 1 - 01/25/2000 Smokeless Tobacco: Never Alcohol Use Standard Drinks/Week Comments Yes 2 (1 standard drink = 0.6 oz pur e alcohol) occ Education Answer Date Recorded Are you interested in more education? Not on dontrell e 07/26/2022 Are you concerned about learning? Not on file 07/26/2022 No 07/26/2022 No 07/26/2022 Digital Access Answer Date Recorded No 08/21/2022 No 08/21/2022 Reliable internet access at home? Not on file 08/21/2022 Device with a working camera? Not on file Intimate Partner Violence Answer Date R ecorded Are you denied basic needs s uch as food, clothing, or medical care? No 06/07/2023 In the past 12 months have y ou been in a relationship with a person who hurts, threatens, or tries to control you? No 06/07/2023 Are you denied basic needs s uch as food, clothing, or medical care? No 06/07/2023 In the past 12 months have y ou been in a relationship with a person who hurts, threatens, or tries to control you? No 06/07/2023 Comments No Sex and Gender Information Value Date Recorded Sex Assigned at Not on file Legal Sex Female 7:57 PM EST Gender Identity Not on file Sexual Orientation Not on file documented as of this encounter Functional Status * Calculated C-SSRS Risk Score (Lifetime/Recent) Answer Date of Assessment Author No Risk Indicated 06/07/2023 6:00 PM EST Gage Mansfield, RN * [place] Suicide Severity Rating Scale (Screener/Recent Self-Report) Question Answer Date of Assessment Author 1. Wish to be (Past 1 Month) No 06/07/2023 6:00 PM Gage Lackey, JARRETT 2. Non-Specific Active Suici bethany Thoughts (Past 1 Month) No 06/07/2023 6:00 PM Blu Lackey RN 6. Suicidal Behavior (Lifetime) No 6:00 PM Gage Lackey, RN documented as of this encounter Plan of Treatment Upcoming Encounters Date Type Department Care Team (Late st Contact Info) Description 03/10/2025 12:00 PM EST Office Visit [facility] Orthopaedic Spine [address] [place] [address], 3rd Floor, [address] [place] [address] Tye Sandhu MD [address] [place] [address] [email or web address] 03/10/2025 3:00 PM EST Office Visit [facility] in [address] [address] Surya Hardin MD [address] [place] [address], [address] [place] [address] maria [email or web address] documented as of this encounter Visit Diagnoses Not on filedocumented in this encounter Care Teams Juice Standardizer Relationship Specialty Start Date End Date Padmini Pierson MD [address] [place] [address] PCP - General 04/04/17 Jose Madsen DO 4 [facility] Orthopedics & Sports [facility], [place] [address] [email or web address] Historical LMR Provider 01/17/17 Cass Reyes PA-C 4 [facility] Orthopedics Sports [facility], [place], [place] [id number] [email or web address] Historical LMR Provider 01/17/17 documented as of this encounter Additional Source Comments The information contained in this document represents components of the legal health record. It is not the complete legal health record.[facility]
--- OUTSIDE RECORDS SUMMARY | 2025-02-18 00:30 | XMS_ITS | Encounter Summary ---
Author Organization [facility] Address [address] [place] [address] Phone Care Team Providers Care Tube Room Cashier Name Role Phone Carol Briseno Unavailable [phone] Padmini Pierson MD Unavailable Jose Madsen DO Unavailable [phone] Cass Reyes PA-C Unavailable [phone] Padmini Pierson MD Primary Care Provider [phone] Reason for Referral * MRI/CAT Scan - Closed Specialty Diagnoses / Procedures Referred By Letha damian Referred To Contact Radiology Diagnoses Left hip pain Behcet's disease Procedures MRI Hip Arthrogram (Left) Quentin Zamora PA Phone: tel: fax: mailto:[email or web address] Referral ID Status Reason Start Date Expiration Date Visits Re quested Visits Authorized [id number] Closed 12/01/2019 05/29/2020 1 1 * - Closed Specialty Diagnoses / Procedures Referred By Letha damian Referred To Contact Radiology Diagnoses Left hip pain Behcet's disease Procedures FL Hip Arthrogram (Left) Quentin Zamora PA Phone: tel: fax: mailto:[email or web address] Referral ID Status Reason Start Date Expiration Date Visits Re quested Visits Authorized [id number] Closed 12/11/2019 12/10/2020 1 1 Encounter Details Date Type Department Care Team (Latest Contact Info) Description 12/11/2019 Transcribe Orders Virtual Department [address] [place] [address] Quentin Zamora PA [address] [place] [address] [email or web address] Left hip pain (Primary Dx); Behcet's disease Social History Tobacco Use Types Packs/Day Years [...] Description 03/10/2025 12:00 PM EST Office Visit [facility] Orthopaedic Spine [address] [place] [address], 3rd Floor, [address] [place] [address] Tye Sandhu MD [address] [place] [address] [email or web address] 03/10/2025 3:00 PM EST Office Visit [facility] [place] in [address] [address] Surya Hardin MD [address] [place] [address], [address] [place] [address] maria [email or web address] documented as of this encounter Results * MRI Hip Arthrogram (Left) (12/25/2019 11:33 AM EDT) Anatomical Region Laterality Modality Hip Left Magnetic Resonan ce 12/25/2019 5:29 PM EDT Impressions 12/25/2019 5:43 PM EDT Suggestion of a non-displaced tear of the anterior labrum at its base. Very mild thinning of the articular cartilage system with early osteoarthritis. Narrative 12/25/2019 5:43 PM EDT HISTORY: Pain and crepitus at left hip. The patient states she has had surgery to the left hip 5 years ago. TECHNIQUE: MRI HIP ARTHROGRAM (LEFT) COMPARISON: Left hip x-ray 06/02/2014, shade maker x-ray 12/25/2019. FINDINGS: ENTIRE PELVIS: No fracture, sacroiliitis, or focal bone lesion. No visceral pelvis soft tissue abnormality. HIP: BONE AND CARTILAGE: No fracture, osteonecrosis, or marrow replacing lesion. Very mild thinning of the articular cartilage of the left hip. LABRUM: No displaced labral tear. Suggestion of a small tear at the base of the labrum anteriorly. TENDONS: Normal gluteus, iliopsoas, rectus femoris, and proximal hamstrings tendons. No bursal collection SOFT TISSUES: Normal muscle bulk and signal intensity. Procedure Note Rogerio Sanford MD - 12/25/2019 HISTORY: Pain and crepitus at left hip. The patient states she has hadsurgery to the left hip 5 years ago. TECHNIQUE: MRI HIP ARTHROGRAM (LEFT) COMPARISON: Left hip x-ray 06/02/2014, shade maker x-ray 12/25/2019. FINDINGS: ENTIRE PELVIS: No fracture, sacroiliitis, or focal bone lesion. Novisceral pelvis soft tissue abnormality. HIP: BONE AND CARTILAGE: No fracture, osteonecrosis, or marrow replacinglesion. Very mild thinning of the articular cartilage of the left hip. LABRUM: No displaced labral tear. Suggestion of a small tear at the baseof the labrum anteriorly. TENDONS: Normal gluteus, iliopsoas, rectus femoris, and proximalhamstrings tendons. No bursal collection SOFT TISSUES: Normal muscle bulk and signal intensity. IMPRESSION: Suggestion of a non-displaced tear of the anterior labrum at its base.Very mild thinning of the articular cartilage system with earlyosteoarthritis. Quentin ASIF IMG MR EXTREMITY Final Resu lt * FL Hip Arthrogram (Left) (12/25/2019 11:03 AM EDT) Anatomical Region Laterality Modality Hip Left Computed Radiogr aphy 12/25/2019 11:4 3 AM EDT Impressions 12/25/2019 11:46 AM EDT Uneventful intra-articular placement of dilute gadolinium solution for MR arthrogram which is dictated separately. FLUOROSCOPY TIME: 0 min. 17 sec; 2 Images. POS [id number] Narrative 12/25/2019 11:46 AM EDT Before commencing the procedure, the risks and benefits of the procedure are discussed with the patient including specific risks of hemorrhage, and infection. The patient gave written and verbal consent to proceed. Before commencing the procedure, side of concern is confirmed with the patient and site marking occurred. Locomotive Crane Operator Helper view obtained initially. The left hip was prepped and draped in usual fashion. Skin and deeper tissues were anesthetized with 1% lidocaine. A 22-gauge spinal needle was then placed into the joint under fluoroscopic observation. Small amount of iodinated contrast was administered to confirm intra-articular placement. A total of cc of dilute gadolinium solution was then administered into the joint without difficulty. Needle was then removed. Patient tolerated the procedure well with no immediate complication. MRI is subsequently obtained and dictated separately. An IUD is present within the mid-lower pelvis slightly to left of midline. Procedure Note Rogerio Sanford MD - 12/25/2019 Before commencing the procedure, the risks and benefits of the procedureare discussed with the patient including specific risks of hemorrhage, andinfection. The patient gave written and verbal consent to proceed. Before commencing the procedure, side of concern is confirmed with thepatient and site marking occurred. Locomotive Crane Operator Helper view obtained initially. The left hip was prepped and draped in usual fashion. Skin and deepertissues were anesthetized with 1% lidocaine. A 22-gauge spinal needle wasthen placed into the joint under fluoroscopic observation. Small amount ofiodinated contrast was administered to confirm intra-articular placement.A total of cc of dilute gadolinium solution was then administered into thejoint without difficulty. Needle was then removed. Patient tolerated theprocedure well with no immediate complication. MRI is subsequentlyobtained and dictated separately. An IUD is present within the mid-lower pelvis slightly to left ofmidline. IMPRESSION: Uneventful intra-articular placement of dilute gadolinium solution for MRarthrogram which is dictated separately. FLUOROSCOPY TIME: 0 min. 17 sec; 2 Images. POS [id number] us Quentin MALDONADO IR MSK Final Resul t documented in this encounter Visit Diagnoses Diagnosis Left hip pain- Primary Pain in joint, pelvic region and thigh Behcet's disease Behcet's syndrome Left hip pain Pain in joint, pelvic region and thigh Behcet's disease Behcet's syndrome Left hip pain Pain in joint, pelvic region and thigh Behcet's disease Behcet's syndrome documented in this encounter Care Teams Tube Room Cashier Relationship Specialty Start Date End Date Padmini Pierson MD [address] [place] [address] PCP - General 04/04/17 Carol Briseno PA [facility] [place] [address] Historical LMR Provider 01/17/17 2 Padmini Pierson MD [address] [place] [address] Historical LMR Provider 01/17/17 Jose Madsen DO 4 [facility] Orthopedics & Sports Medicine, [place] [address] [email or web address] Historical LMR Provider 01/17/17 Cass Reyes PA-C 4 [facility]ics [facility] Medicine, [place] [address] [email or web address] Historical LMR Provider 01/17/17 documented as of this encounter Additional Source Comments The information contained in this document represents components of the legal health record. It is not the complete legal health record.[facility]
--- OUTSIDE RECORDS SUMMARY | 2025-02-18 00:30 | XMS_ITS | Encounter Summary ---
Author Organization [facility] Address [address] [place] [address] Phone Care Team Providers Care Blower Mechanic Name Role Phone Carol Briseno Unavailable [phone] Padmini Pierson MD Unavailable Jose Madsen DO Unavailable [phone] Cass Reyes PA-C Unavailable Padmini Pierson MD Primary Care Provider [phone] Encounter Details Date Type Department Care Team (Late st Contact Info) Description 08/15/2020 Prep for Surgery [facility] Orthopedics & Sports Medicine [address] [place] [address] Jose Madsen DO [address] [place] [address] Orthopedics & Sports Medicine, [place] [address] [email or web address] Rupture of anterior cruciate ligament of right knee, subsequent encounter (Primary Dx) Social History Tobacco Use Types Packs/Day Years Used Date Smoking Tobacco: Former Cigarettes Q uit: 01/25/2000 Smokeless Tobacco: Never Alcohol Use Standard Drinks/Week Comments Yes 0 (1 standard drink = 0.6 oz pur [...] Description 03/10/2025 12:00 PM EST Office Visit [facility] Orthopaedic Spine [address] [facility], 3rd Floor, [address] [place] [address] Tye Sandhu MD 55 [facility] [address] [place] [address] [email or web address] 03/10/2025 3:00 PM EST Office Visit [facility] in [address] [address] Surya Hardin MD [address] [place] [address], [address] [place] [address] maria [email or web address] documented as of this encounter Visit Diagnoses Diagnosis Rupture of anterior cruciate ligament of right knee, subsequent encounter- Primary documented in this encounter Care Teams Blower Mechanic Relationship Specialty Start Date End Date Padmini Pierson MD [address] [place] [address] PCP - General 04/04/17 Carol Briseno PA Count includes the [facility] [place] [address] Historical LMR Provider 01/17/17 2 Padmini Pierson MD [address] [place] [address] Historical LMR Provider 01/17/17 Jose Madsen DO [address] [place] [address] Orthopedics & Sports Medicine, [place], [place] [id number] [email or web address] Historical LMR Provider 01/17/17 Cass Reyes PA-C [address] [place] [address] Orthopedics & Sports Medicine, [place] [address] [email or web address] Historical LMR Provider 01/17/17 documented as of this encounter Additional Source Comments The information contained in this document represents components of the legal health record. It is not the complete legal health record.[facility]
--- OUTSIDE RECORDS SUMMARY | 2025-02-18 00:30 | XMS_ITS | Encounter Summary ---
Author Organization [facility] Address [address] [place] [address] [place] [address] Phone Care Team Providers Care Telecommunications Line Installer Name Role Phone Jose Madsen DO Unavailable [phone] Cass Reyes PA-C Unavailable [phone] Padmini Pierson MD Primary Care Provider [phone] Encounter Details Date Type Department Care Team (Late st Contact Info) Description 02/05/2023 Procedure Pass [facility], Ct Scan - [address] [address] Social History Tobacco Use Types Packs/Day Years [...] with a working camera? Not on file Comments No Sex and Gender Information Value Date Recorded Sex Assigned at Not on file Legal Sex Female 7:57 PM EST Gender Identity Not on file Sexual Orientation Not on file documented as of this encounter Plan of Treatment Upcoming Encounters Date Type Department Care Team (Late st Contact Info) Description 03/10/2025 12:00 PM EST Office Visit [facility] [place] [place] Orthopaedic Spine 55 [facility], 3rd Floor, [address] [place] [address] Tye Sandhu MD 55 [facility] [address] [place] [address] [email or web address] [email or web address] 03/10/2025 3:00 PM EST Office Visit [facility] in [address] [address] Surya Hardin MD [address] [place] [address], [address] [place] [address] maria [email or web address] documented as of this encounter Visit Diagnoses Not on filedocumented in this encounter Care Teams Telecommunications Line Installer Relationship Specialty Start Date End Date Padmini Pierson MD [address] [place] [address] PCP - General 04/04/17 Jose Madsen DO [address] [place] [address] Orthopedics & Sports [facility], [place] [address] [email or web address] Historical LMR Provider 01/17/17 Cass Reyes PA-C [address] [place] [address] Orthopedics & Sports Medicine, [place] [address] Historical LMR Provider 01/17/17 documented as of this encounter Additional Source Comments The information contained in this document represents components of the legal health record. It is not the complete legal health record.[facility]
--- OUTSIDE RECORDS SUMMARY | 2025-02-18 00:30 | XMS_ITS | Encounter Summary ---
Author Organization [facility] Address [address] [facility] [address] [place] [address] Phone Care Team Providers Care Employer Relations Representative Name Role Phone Jose Madsen DO Unavailable [phone] Cass Reyes PA-C Unavailable Padmini Pierson MD Primary Care Provider [phone] Encounter Details Date Type Department Care Team (Late st Contact Info) Description 12/12/2023 Procedure Pass [facility], Ct Scan - [address] [address] Social History Tobacco Use Types Packs/Day Years [...] Description 03/10/2025 12:00 PM EST Office Visit [facility] Orthopaedic Spine [address] [place] [address], 3rd Floor, [address] [place] [address] Tye Sandhu MD [address] [place], [place] [id number] [email or web address] 03/10/2025 3:00 PM EST Office Visit [facility] in [address] [address] Sruya Hardin MD [address] [place] [address], [address] [place] [address] maria [email or web address] documented as of this encounter Visit Diagnoses Not on filedocumented in this encounter Care Teams Employer Relations Representative Relationship Specialty Start Date End Date Padmini Pierson MD [address] [place] [address] PCP - General 04/04/17 Jose Madsen DO [address] [place] [address] Orthopedics & Sports [facility], [place] [address] [email or web address] Historical LMR Provider 01/17/17 Cass Reyes PA-C [address] [place] [address] Orthopedics & Sports Medicine, [place] [address] [email or web address] Historical LMR Provider 01/17/17 documented as of this encounter Additional Source Comments The information contained in this document represents components of the legal health record. It is not the complete legal health record.[facility]
--- OUTSIDE RECORDS SUMMARY | 2025-02-18 00:30 | XMS_ITS | Clinical Summary ---
Author Organization [facility] Address [facility] [employer] [address] [address] Phone Care Team Providers Care Court Worker Name Role Phone CitrusJose DO Unavailable [phone] Cass Reyes PA-C Unavailable [phone] Padmini Pierson MD Primary Care Provider [phone] Allergies Active Allergy Reactions Criticality Noted Date Comments Gluten 06/16/2015 sensitivity Lactose 06/16/2015 Intolerant Sulfamethoxazole-Trimet hoprim Hives,Swelling 02/04/2008 Other reaction(s): Unknown Medications apremilast (OTEZLA) 30 mg tablet Take 30 mg by mouth 2 (two) times a day. Active cholecalciferol (VITAMIN D3) 25 MCG (1,000 unit) tablet Take 1,000 Units by mouth daily. Active butalbital-acet aminophen-caffe ine-codeine (FIORICET WITH CODEINE) 28-551-55-30 mg Cap Take by mouth every 4 (four) hours. Active METHOTREXATE ORAL Take 17.5 mg by mouth once a week. 2.5 mg tablets. Take 7 weekly on Active leucovorin (WELLCOVORIN) 5 mg tablet Take 5 mg by mouth once a week. One day after taking the Methotrexate 3 Active propranoloL (INDERAL) 40 MG immediate release tablet Take 40 mg by mouth 2 (two) times a day. Active colchicine (COLCRYS) 0.6 mg tablet Take 1.2 mg by mouth nightly at bedtime. Active cyanocobalamin, vitamin B-12, 1,000 mcg/mL Kit Inject 1,000 mcg as directed every 7 days. Use as directed Active DULoxetine (CYMBALTA) 40 mg capsule Take 40 mg by mouth nightly at bedtime. Active pregabalin (LYRICA) 25 MG capsule Take 25 mg by mouth 2 (two) times a day. Takes 25mg every morning and 50mg at night Active omeprazole (PRILOSEC) 40 MG capsule Take 40 mg by mouth daily. Active tiZANidine (ZANAFLEX) 2 MG tablet Take 1 tablet (2 mg total) by mouth every 6 (six) hours as needed (neck and/or arm pain/tingling). 24 tablet 4 Active Additional Information Patient taking differently:2 mg Oral Every 6 hours PRN, neck and/or arm pain/tingling,Taking 2 BID, Reported on 05/04/2024 diclofenac potassium (CATAFLAM) 50 MG tablet Take 50 mg by mouth 2 (two) times a day. Active traMADoL 25 mg Tab Take 50 mg by mouth 3 (three) times a day. Active midodrine (PROAMATINE) 5 MG tablet Take 5 mg by mouth 2 (two) times a day. Active senna (SENOKOT) 8.6 mg tablet Take 2 tablets by mouth nightly at bedtime. 20 tablet 5 Active acetaminophen (TYLENOL) 500 MG tablet Take 2 tablets (1,000 mg total) by mouth every 8 (eight) hours as needed for pain (specific location in comments). 30 tablet 5 Active diazePAM (VALIUM) 5 MG tablet Take 1.5 tablets (7.5 mg total) by mouth every 8 (eight) hours as needed for other (free text field) (spasm). 15 tablet 5 Active polyethylene glycol (MIRALAX) 17 gram packet Take 17 g by mouth daily as needed for mild constipation. 20 packet 5 Active morphine (MSIR) 15 MG tablet Take 1 tablet (15 mg total) by mouth every 3 (three) hours as needed for pain (specific location in comments). Partial fill ok 40 tablet 5 Active morphine (MSIR) 15 MG tablet Take 0.5 tablets (7.5 mg total) by mouth every 4 (four) hours as needed for pain (specific location in comments) (severe neck pain). Partial fill ok 20 tablet Active Active Problems Patient Care Coordination No te Formatting of this note is d ifferent from the original. 02/05/2023 9:20 AM RAPT REVIEW FLOWSHEET What is your age group 50-65 years Gender Female How far on average can you walk 1-2 blocks (+/- rest) Which gait aid do you use None Do yo use community support None or one per week PROMs Risk Assessment and Prediction Tool (RAPT) Score 10 (Directly Home) Problem Noted Date Diagnosed Date Cervical spine instability 05/25/2024 H/O cervical spine surgery 06/07/2023 Rupture of anterior cruciate ligament of right k nee 08/15/2020 Left hip pain 01/13/2020 Migraine 02/04/2008 Overview (05/22/2014): Migraine Social History Tobacco Use Types Packs/Day Years Used Date Smoking Tobacco: Former Cigarettes 0.3 1 1 - 01/25/2000 Smokeless Tobacco: Never Tobacco Cessation:Counseling Given: Not Answered Alcohol Use Standard Drinks/Week Comments Yes 2 (1 standard drink = 0.6 oz pur e alcohol) a few drinks a month Education Answer Date Recorded Are you interested in more education? Not on dontrell e 07/26/2022 Are you concerned about learning? Not on file 07/26/2022 No 07/26/2022 No 07/26/2022 Food Answer Date Recorded Within the past 6 months we worried whether our food would run out before we got money to buy more. Never True 05/25/2024 Within the past 6 months the food we bought just didn't last and we didn't have enough money to get more. Never True Residential Stability Answer Date Recor ded What is your housing situation today? I have kaz sing 05/25/2024 How many times have you move d in the past 12 months? Zero (I did not move) 05/25/2024 Paying for Meds Answer Date Recorded Do you have trouble paying for medicines? No 05/25/2024 Paying Utility Bills Answer Date Record ed Do you have trouble paying your heating or elect ricity bill? Yes 05/25/2024 Transportation Answer Date Recorded Has the lack of transportati on kept you from medical appointments or from getting medications? No 05/25/2024 Digital Access Answer Date Recorded No 05/25/2024 Yes 05/25/2024 Do you have reliable internet access at home? Ye s 05/25/2024 Do you have a device (e.g., phone, tablet, computer) with a working camera? Yes 05/25/2024 Intimate Partner Violence Answer Date R ecorded Are you denied basic needs s uch as food, clothing, or medical care? No 05/25/2024 In the past 12 months have y ou been in a relationship with a person who hurts, threatens, or tries to control you? No 05/25/2024 Are you denied basic needs s uch as food, clothing, or medical care? No 05/25/2024 In the past 12 months have y ou been in a relationship with a person who hurts, threatens, or tries to control you? No 05/25/2024 Comments No Sex and Gender Information Value Date Recorded Sex Assigned at Not on file Legal Sex Female 7:57 PM EST Gender Identity Not on file Sexual Orientation Not on file Last Filed Vital Signs Vital Sign Reading Time Taken Comments Blood Pressure 137/90 05/28/2024 7:46 AM EST Pulse 72 05/28/2024 7:46 AM EST Temperature 36.1 C (96.9 F) 05/28/2024 7:46 AM EST Respiratory Rate 18 05/27/2024 11:54 PM EST Oxygen Saturation 97% 05/28/2024 7:46 AM EST Inhaled Oxygen Concentration - - Weight 48.1 kg (106 lb) 05/25/2024 7:24 AM EST Height 152.5 cm (5' 0.05 ) 05/25/2024 7:24 AM ES T Body Mass Index 20.67 05/25/2024 7:24 AM EST Plan of Treatment Upcoming Encounters Date Type Department Care Team (Late st Contact Info) Description 03/10/2025 12:00 PM EST Office Visit [facility] [place]edic Spine 55 [facility], 3rd Floor, [address] [place] [address] Tye Sandhu MD 55 [facility] [address] [place] [address] [email or web address] 03/10/2025 3:00 PM EST Office Visit [facility] in [address] [address] Surya Hardin MD [address] [facility], [address] [place] [address] maria [email or web address] Health Maintenance Due Date Last Done Comments DEPRESSION SCREENING 1994 HEPATITIS C SCREENING 2000 HIV ONE-TIME SCREENING (18-65 YEARS) 2000 PNEUMOCOCCAL VACCINES (0-49 years) (1 of 2 - PCV) 2001 PAP SMEAR 06/29/2003 MAMMOGRAM 2022 INFLUENZA VACCINE (#1) 2024 , 01/22/2022, 01/22/2022, Additional history exists COVID-19 VACCINE ( season) 2024 07/28/2021, 01/02/2021, 06/20/2020, Additional history exists Adult Td,Tdap Booster 06/10/2028 06/10/2018 SMOKING STATUS SCREENING (Once After 26 Yrs) Completed 05/25/2024 HEPATITIS A VACCINES Aged Out No long er eligible based on patient's age to complete this topic HIB VACCINES Aged Out No longer eligi ble based on patient's age to complete this topic MENINGOCOCCAL VACCINES (ACWY) Aged Out No longer eligible based on patient's age to complete this topic MENINGOCOCCAL VACCINES (B) Aged Out N o longer eligible based on patient's age to complete this topic Medical Devices Implanted Type Area Account Support Rep Device Identifier Shelf Expiration Date Model / Serial / Lot Tissue Graft [id number] Tendon Flexi Allo Semi Tendinosus Gracilis Frozen - [id number] Implanted:Qty: 1 on 09/09/2020 by Jose Madsen DO at [facility] [employer] Right: Knee [employer] 08/02/2025 [facility] / [id number] / Graft Bone 1cc Dbx Allo Dbm Demineralized Matrix Freeze Dried Putty Syringe - [id number] Implanted:Qty: 1 on 05/25/2024 by Tye Sandhu MD at [facility] [employer] N/A: Anterior Cervical [employer] 01/06/2026 [id number] / [id number] / Plate Plate Spine Cervical Screw Implanted:Qty: 2 Screw Spine Cervical Device Fixation Ultrabutton Adjustable - [id number] Implanted:Qty: 1 on 09/09/2020 by Jose Madsen DO at [facility] Right: Knee [employer] 07/09/2023 [id number] / / [id number] Screw Bone 8x25mm Interference Biosure Regenesorb Biocomposite Absorable - [id number] Implanted:Qty: 1 on 09/09/2020 by Jose Madsen DO at [facility] Right: Knee [employer] 06/14/2023 [id number] / / [id number] Screw Bone 2.6x7mm Spine Leverage Lateral Laminar Mass - [id number] Implanted:Qty: 3 on 06/07/2023 by Tye Sandhu MD at [facility] N/A: Posterior Cervical [employer] [id number] / / Screw Spine 2.6x5mm - [id number] Implanted:Qty: 4 on 06/07/2023 by Tye Sandhu MD at [facility] N/A: Posterior Cervical [employer] [id number] / / Lumbar Plate 8mm Sm 1 Level Leverage [place] Fixation Laminar - [id number] Implanted:Qty: 3 on 06/07/2023 by Tye Sandhu MD at [facility] N/A: Posterior Cervical [employer] [id number] / / Identiti Cervical Sa Spacer [id number] Degree Implanted:Qty: 1 on 05/25/2024 by Tye Sandhu MD at [facility] N/A: Anterior Cervical 07/10/2028 / NA / 3.5 X 12 Mm Screw Implanted:Qty: 2 on 05/25/2024 by Tye Sandhu MD at [facility] N/A: Anterior Cervical 07/04/2024 / NA / NA Insurance O MEDICARE PART A & B MEDICARE PART A & B O O MEDICARE PART A & B MEDICARE PART A & B [facility] A & B O O MEDICARE PART A & B Care Teams Court Worker Relationship Specialty Start Date End Date Padmini Pierson MD [address] [place] [address] PCP - General 04/04/17 Jose Madsen DO 4 [facility] Orthopedics & Sports [facility], [place] [address] [email or web address] Historical LMR Provider 01/17/17 Cass Reyes PA-C 4 [facility] Orthopedics & Sports Medicine, [place] [address] Historical LMR Provider 01/17/17 Additional Source Comments The information contained in this document represents components of the legal health record. It is not the complete legal health record.[facility]
--- OUTSIDE RECORDS SUMMARY | 2025-02-18 00:30 | XMS_ITS | Encounter Summary ---
Author Organization [facility] Address [address] [place] [address] [place] [address] Phone Care Team Providers Care Computational Mathematician Name Role Phone Carol Briseno Unavailable [phone] Padmini Pierson MD Unavailable Jose Madsen DO Unavailable Cass Reyes PA-C Unavailable [phone] Padmini Pierson MD Primary Care Provider Encounter Details Date Type Department Care Team (Late st Contact Info) Description 12/11/2019 Procedure Pass [facility], [address] [address] Social History Tobacco Use Types Packs/Day Years [...] Description 03/10/2025 12:00 PM EST Office Visit [facility] Orthopaedic Spine 55 [facility], 3rd Floor, [address] [place] [address] Tye Sandhu MD 55 [facility] [address] [place] [address] [email or web address] 03/10/2025 3:00 PM EST Office Visit [facility] in [address] [address] Surya Hardin MD [address] [place] [address], [address] [place] [address] maria documented as of this encounter Visit Diagnoses Not on filedocumented in this encounter Care Teams Computational Mathematician Relationship Specialty Start Date End Date Padmini Pierson MD [address] [place] [address] PCP - General 04/04/17 Carol Brisen[place] [address] [place] [address] Historical LMR Provider 01/17/17 2 Padmini Pierson MD [address] [place] [address] Historical LMR Provider 01/17/17 Jose Madsen DO 4 [facility] Orthopedics & Sports Medicine, [facility] [place] [address] Historical LMR Provider 01/17/17 Cass Reyes PA-C 4 [facility] Orthopedics & Sports Medicine, [facility] [place] [address] Historical LMR Provider 01/17/17 documented as of this encounter Additional Source Comments The information contained in this document represents components of the legal health record. It is not the complete legal health record.[facility]
--- OUTSIDE RECORDS SUMMARY | 2025-02-18 00:30 | XMS_ITS | Encounter Summary ---
Author Organization [facility] Address [address] [place] [address] [place] [address] Phone Care Team Providers Care Wooden Furniture Polisher Name Role Phone Carol Briseno Unavailable [phone] Padmini Pierson MD Unavailable Jose Madsen DO Unavailable Cass Reyes PA-C Unavailable [phone] Padmini Pierson MD Primary Care Provider Encounter Details Date Type Department Care Team (Late st Contact Info) Description 12/22/2019 Procedure Pass [facility], X-Ray - [address] [address] Social History Tobacco Use Types Packs/Day Years [...] Description 03/10/2025 12:00 PM EST Office Visit [facility] Orthopaedic Spine 55 [facility], 3rd Floor, [address] [place] [address] Tye Sandhu MD 55 [facility] [address] [place] [address] [email or web address] 03/10/2025 3:00 PM EST Office Visit [facility] [place] in [address] [address] Surya Hardin MD [address] [place] [address], [address] [place] [address] maria documented as of this encounter Visit Diagnoses Not on filedocumented in this encounter Care Teams Wooden Furniture Polisher Relationship Specialty Start Date End Date Padmini Pierson MD [address] [place] [address] PCP - General 04/04/17 Carol Briseno PA [facility], [facility] [place] [address] Historical LMR Provider 01/17/17 2 Padmini Pierson MD [address] [place] [address] Historical LMR Provider 01/17/17 Jose Madsen DO [address] [place] [address] Orthopedics & Sports Medicine, [place] [address] [email or web address] Historical LMR Provider 01/17/17 Cass Reyes PA-C 4 [facility] Orthopedics & Sports Medicine, [facility] [place] [address] Historical LMR Provider 01/17/17 documented as of this encounter Additional Source Comments The information contained in this document represents components of the legal health record. It is not the complete legal health record.[facility]
--- OUTSIDE RECORDS SUMMARY | 2025-02-18 00:31 | XMS_ITS | Encounter Summary ---
Author Organization [facility] Address [address] [employer] [facility] [address] [place] [address] Phone Care Team Providers Care Abrasive Sawyer Name Role Phone Jose Madsen DO Unavailable [phone] Cass Reyes PA-C Unavailable [phone] Padmini Pierson MD Primary Care Provider [phone] Encounter Details Date Type Department Care Team (Late st Contact Info) Description 11/27/2023 Procedure Pass [address] [place] [address] Social History Tobacco Use Types Packs/Day Years [...] - Inhaled Oxygen Concentration - - Weight 48.5 kg (107 lb) 11/28/2023 5:57 PM EDT Height 154.9 cm (5' 1 ) 11/28/2023 5:57 PM EDT Body Mass Index 20.22 11/28/2023 5:57 PM EDT documented in this encounter Plan of Treatment Upcoming Encounters Date Type Department Care Team (Late st Contact Info) Description 03/10/2025 12:00 PM EST Office Visit [facility] [address] [place] [address], 3rd Floor, [address] [place] [address] Tye Sandhu MD [address] [place] [address] [email or web address] 03/10/2025 3:00 PM EST Office Visit [facility] [place] in [address] [address] Surya Hardin MD [address] [place] [address], [address] [place] [address] maria [email or web address] documented as of this encounter Visit Diagnoses Not on filedocumented in this encounter Care Teams Abrasive Sawyer Relationship Specialty Start Date End Date Padmini Pierson MD [address] [place] [address] PCP - General 04/04/17 Jose Madsen DO 4 [facility], [facility] [place] [address] [email or web address] Historical LMR Provider 01/17/17 Cass Reyes PA-C 4 [facility], [facility] [place] [address] [email or web address] Historical LMR Provider 01/17/17 documented as of this encounter Additional Source Comments The information contained in this document represents components of the legal health record. It is not the complete legal health record.[facility]
--- OUTSIDE RECORDS SUMMARY | 2025-02-18 00:31 | XMS_ITS | Encounter Summary ---
Author Organization [facility] Address [address] [employer] [facility] [address] [place] [address] Phone Care Team Providers Care Pin Puller Name Role Phone Jose Madsen DO Unavailable [phone] Cass Reyes PA-C Unavailable [phone] Padmini Pierson MD Primary Care Provider [phone] Encounter Details Date Type Department Care Team (Late st Contact Info) Description 05/25/2024 Procedure Pass [facility] PERIOPERATIVE DEPT [address] [place] [id number] Social History Tobacco Use Types Packs/Day [...] Date of Assessment Author No Risk Indicated 05/25/2024 4:00 PM Dalila Zhou RN * [place] Suicide Severity Rating Scale (Screener/Recent Self-Report) Question Answer Date of Assessment Author 1. Wish to be (Past 1 Month) No 025 4:00 PM Dalila Zhou RN 2. Non-Specific Active Suici bethany Thoughts (Past 1 Month) No 05/25/2024 4:00 PM Miki Zhou RN 6. Suicidal Behavior (Lifetime) No 4:00 PM EST Hare, Dalila J, RN documented as of this encounter Plan of Treatment Upcoming Encounters Date Type Department Care Team (Late st Contact Info) Description 03/10/2025 12:00 PM EST Office Visit [facility] Orthopaedic Spine [address], 3rd Floor, [address] [place] [address] Tye Sandhu MD 55 [facility] [address] [place] [address] [email or web address] 03/10/2025 3:00 PM EST Office Visit [facility] [place] in [address] [address] Surya Hardin MD [address] [place] [address], [address] [place] [address] maria [email or web address] documented as of this encounter Visit Diagnoses Not on filedocumented in this encounter Care Teams Pin Puller Relationship Specialty Start Date End Date Padmini Pierson MD [address] [place] [address] PCP - General 04/04/17 Jose Madsen DO [address] [place] [address] Orthopedics & Sports Medicine, [place] [address] [email or web address] Historical LMR Provider 01/17/17 Cass Reyes PA-C [address] [place] [address] Orth[facility] Medicine, [place] [address] Historical LMR Provider 01/17/17 documented as of this encounter Additional Source Comments The information contained in this document represents components of the legal health record. It is not the complete legal health record.[facility]
--- OUTSIDE RECORDS SUMMARY | 2025-02-18 00:31 | XMS_ITS | Encounter Summary ---
Author Organization [facility] Address [address] [employer] [facility] [address] [place] [address] Phone Care Team Providers Care Hand Wrapper Operator Name Role Phone Jose Madsen DO Unavailable [phone] Cass Reyes PA-C Unavailable [phone] Padmini Pierson MD Primary Care Provider [phone] Encounter Details Date Type Department Care Team (Late st Contact Info) Description 12/12/2023 Procedure Pass [facility], [address] [address] Social History Tobacco Use Types Packs/Day Years [...] 03/10/2025 12:00 PM EST Office Visit [facility] [address] [place] [address], 3rd Floor, [address] [place] [address] Tye Sandhu MD [address] [place] [address] [email or web address] 03/10/2025 3:00 PM EST Office Visit [facility] [place] in [address] [address] Surya Hardin MD [address] [place] [address], [address] [place] [address] [email or web address] [email or web address] documented as of this encounter Visit Diagnoses Not on filedocumented in this encounter Care Teams Hand Wrapper Operator Relationship Specialty Start Date End Date Padmini Pierson MD [address] [place] [address] PCP - General 04/04/17 Jose Madsen DO [address] [place] [address] [facility], [place] [address] [email or web address] Historical LMR Provider 01/17/17 Cass Reyes PA-C [address] [place] [address] Orthopedics [facility] Sports Medicine, [place] [address] [email or web address] Historical LMR Provider 01/17/17 documented as of this encounter Additional Source Comments The information contained in this document represents components of the legal health record. It is not the complete legal health record.[facility]
== END 2025-02-17 12:46 | disposition home or self-care (01) ==
LOC: HO.LAB 12:45
PROVIDERS: PCP Internal Medicine; Visit Provider Internal Medicine Rheumatology
DX: Z79.899 Other long term (current) drug therapy (principal)
CPT/HCPCS: 36415; 82565; 84450; 84460; 85025; 85652; 86140

== ENCOUNTER 2025-02-24 12:42 | Outpatient (REF) | payer MEDICARE, MEDICAID, SELFPAY ==
[2025-03-01 18:39] LABS: Glucose-6-Phosphate Dehydrogen 16.9 U/g Hgb (7.0-20.5)
== END 2025-02-24 12:43 | disposition home or self-care (01) ==
LOC: HO.HKASLDS 12:42
PROVIDERS: PCP Internal Medicine; Visit Provider Internal Medicine Rheumatology
DX: M35.2 Behcet's disease (principal); M46.1 Sacroiliitis, not elsewhere classified; Z79.899 Other long term (current) drug therapy; Z79.631 Long term (current) use of antimetabolite agent; Z79.811 Long term (current) use of aromatase inhibitors; Z79.1 Long term (current) use of non-steroidal anti-inflammatories (NSAID)
CPT/HCPCS: 36415; 82955; 99212

== ENCOUNTER 2025-02-24 12:42 | Outpatient (AMB) | payer MEDICARE, OTHER, SELFPAY ==
[2025-02-24 12:46] VITALS: BP 118/68; PULSE 98; O2SAT 99; BMI 21.3
--- NOTE | 2025-02-24 12:46 | MHC.OFFVIS ---
Vital Signs 02/24/25 12:46 Height 5 ft Weight 108 lb 14.534 oz BMI 21.3 BP 118/68 Blood Pressure Location Lt brachial Position Sitting Pulse 98 Pulse Source Pulse Oximeter Pulse Oximetry (%) 99 Oxygen Delivery Method Room Air Intake Visit Reasons: follow up Intake Note: Patient presents today for an visit. Hospitality Specialist Required: No Accompanied by: Self / Same As Patient Allergies Sulfa (Sulfonamide Antibiotics) Allergy (Unknown, Verified 02/24/25 12:49) Hives HPI HPI follow up: Details: Resumed simponi infusion. She had benefit on simponi with reducing hands, fingers and hips. However, she continues to have bilateral SI joint pain. Stiffness is throughout the day. No new joint swelling. Physical Exam Vital Signs: Last Vital Signs Pulse 98 02/24/25 12:46 BP 118/68 02/24/25 12:46 Pulse Ox 99 02/24/25 12:46 Oxygen Delivery Method Room Air 02/24/25 12:46 BMI result Body Mass Index 21.3 Const Other: General: Comfortable CVS: RRR Respiratory: clear to auscultation bilaterally. Good respiratory effort Skin: Ulcers present on anterior chest and extremities MSK: Tender to palpate PIPs of bilateral hands. She is able to clerical adviser my hands. Normal range of motion of upper extremity and lower extremity. No synovitis. Normal range of motion of lower extremities. Lower lumbar spinous process tenderness. Good lumbar flexion. Tender to palpate bilateral SI joints. Positive TIFFANY bilateral. Assessment & Plan Assessment & Plan (1) Behcet disease with multisystem involvement: Comment: Since being back on her immunosuppressive regimen she has not had control of her inflammatory back pain. We discussed next steps with targeted treatment with SI joint injections, which she last had about 4 years ago. Patient agrees with plan to pursue pain management referral. We discuss the need for PCP prophylaxis as patient is on 3 immunosuppressive therapies. Rheumatology history: Manifesting with oral/genital/intestinal/skin ulcers, polyarthralgias and sacroiliitis. Failed MMF, AZA, monotherapy with colchicine, monotherapy with methotrexate, prednisone for oral and skin ulcer management. Oral and skin ulcers have been controlled on combination Otezla and colchicine. 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 Right eye scleritis 2013. Left eye scleritis November 2010 (Dr. Mary noe [facility] [place]). No confirmed uveitis. 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 She has had a history of left trochanteric bursitis treated with cortisone injection May 2021. She has had sacroiliitis on MRI 2010. HLA B27 negative. Failed Remicade, Humira. Secondary treatment failure with Cimzia. Simponi Aria 2023-held for C-spine surgery for 3 months then resumed 08/2024-. Code(s): M35.2 - Behcet's disease Category: Medical Plan: Labs for disease and drug monitoring ordered. I will start dapsone after G6PD results are negative. Continue colchicine 1.2 mg in the morning and 0.6 mg in the evening. Continue colchicine to 0.6 mg b.i.d. when skin ulcers are controlled. Continue methotrexate 17.5 mg once weekly Continue leucovorin 5 mg the day after she takes methotrexate Continue diclofenac 50 mg b.i.d. Continue Simponi 2 milligram/kilogram every 8 weeks IV infusion Pain management referral for bilateral SI joint cortisone injections Return to clinic in 3 months (2) Sacroiliitis: Code(s): M46.1 - Sacroiliitis, not elsewhere classified Category: Medical Plan: See above Orders: Orders XR lumbar spine 2-3V 02/24/25 M35.2 - Behcet's disease XR sacroiliac joint min 3V 02/24/25 M35.2 - Behcet's disease Fslpcqm-[id number] Dehydrogen 02/24/25 M35.2 - Behcet's disease, Z79.899 - Other fdc (current) drug therapy Referrals Pain Management Referral M35.2 - Behcet's disease, M46.1 - Sacroiliitis, not elsewhere classified Medications: Changed From leucovorin calcium Take 1 tablet the day after you take methotrexate 5 mg PO QWEEK 12 weeks 12 tabs 4RF To leucovorin calcium Take 2 tablet the day after you take methotrexate 10 mg (2 x 5 mg) PO QWEEK 24 tabs 4RF 12 weeks Coding Level of Care Code Est Pt Level 4 (37293) Complex visit Add On G2211 Diagnoses Behcet disease with multisystem involvement M35.2 Sacroiliitis M46.1
--- OUTSIDE RECORDS SUMMARY | 2025-02-24 15:44 | XMS_ITS | Encounter Summary ---
Author Organization [facility] Address [address] [place] [address] [place] [address] Phone Care Team Providers Care Furnace Loader Name Role Phone Carol Briseno Unavailable [phone] Padmini Pierson MD Unavailable Jose Madsen DO Unavailable [phone] Cass Reyes PA-C Unavailable [phone] Padmini Pierson MD Primary Care Provider [phone] Encounter Details Date Type Department Care Team (Late st Contact Info) Description 12/22/2019 Procedure Pass [facility], X-Ray - [address] [address] Social History Tobacco Use Types Packs/Day Years [...] Care Team (Late st Contact Info) Description 03/08/2025 4:00 PM EST Office Visit [facility] Cardiovascular Medicine 32 [facility], 5th Floor, [address] [place] [address] Hany Pedraza MD [address] [facility] [address] [place] [address] [email or web address] 03/10/2025 12:00 PM EST Office Visit [facility] Orthopaedic Spine 55 [facility], 3rd Floor, [address] [place] [address] Tye Sandhu MD [address] [facility] [address] [place] [address] [email or web address] 03/10/2025 3:00 PM EST Office Visit [facility] [place] in [address] [address] Surya Hardin MD 50 [facility], [address] [place] [address] maria [email or web address] documented as of this encounter Visit Diagnoses Not on filedocumented in this encounter Care Teams Furnace Loader Relationship Specialty Start Date End Date Padmini Pierson MD [address] [place] [address] PCP - General 04/04/17 Carol Briseno PA [facility] [place] [address] Historical LMR Provider 01/17/17 2 Padmini Pierson MD [address] [place] [address] Historical LMR Provider 01/17/17 Jose Madsen DO 4 [facility] Orthopedics & Sports Medicine, [facility] [place] [place] [address] [email or web address] Historical LMR Provider 01/17/17 Cass Reyes PA-C [address] [place] [address] Orthopedics & Sports Medicine, [place] [address] Historical LMR Provider 01/17/17 documented as of this encounter Additional Source Comments The information contained in this document represents components of the legal health record. It is not the complete legal health record.[facility]
--- OUTSIDE RECORDS SUMMARY | 2025-02-24 15:44 | XMS_ITS | Encounter Summary ---
Author Organization [facility] Address [facility] [employer] [facility] [address] [place] [address] Phone Care Team Providers Care Manager Asset Management Name Role Phone Carol Briseno Unavailable [phone] Padmini Pierson MD Unavailable Jose Madsen DO Unavailable [phone] Cass Reyes PA-C Unavailable Padmini Pierson MD Primary Care Provider Encounter Details Date Type Department Care Team (Late st Contact Info) Description 09/09/2020 Procedure Pass [place] Admitting Dept - Virtual Department [address] [place] [address] Social History Tobacco Use Types Packs/Day Years [...] Description 03/08/2025 4:00 PM EST Office Visit [facility] [place] [address] [facility], 5th Floor, [address] [place] [address] Hany Pedraza MD [address] [facility] [address] [place] [address] [email or web address] 03/10/2025 12:00 PM EST Office Visit [facility] [place] Orthopaedic Spine [address] [facility], 3rd Floor, [address] [place] [address] Tye Sandhu MD 55 [facility] [address] [place] [address] [email or web address] [email or web address]. U 03/10/2025 3:00 PM EST Office Visit [facility] [place] in [address] [address] Surya Hardin MD [address] [place] [address], [address] [place] [address] maria [email or web address] documented as of this encounter Visit Diagnoses Not on filedocumented in this encounter Care Teams Manager Asset Management Relationship Specialty Start Date End Date Padmini Pierson MD [address] [place] [address] PCP - General 04/04/17 Carol Briseno PA [facility] [place] [address] Historical LMR Provider 01/17/17 2 Padmini Pierson MD [address] [place] [address] Historical LMR Provider 01/17/17 Jose Madsen DO [address] [place] [address] [facility] [place] [place] [address] Historical LMR Provider 01/17/17 Cass Reyes, PAEfraC [address] [place] [address] Orthopedics & Sports Medicine, [place] [address] [email or web address] Historical LMR Provider 01/17/17 documented as of this encounter Additional Source Comments The information contained in this document represents components of the legal health record. It is not the complete legal health record.[facility]
--- OUTSIDE RECORDS SUMMARY | 2025-02-24 15:44 | XMS_ITS | Encounter Summary ---
Author Organization [facility] Address [address] [employer] [facility] [address] [place] [address] Phone Care Team Providers Care Parboiler Name Role Phone Jose Madsen DO Unavailable [phone] Cass Reyes PA-C Unavailable [phone] Padmini Pierson MD Primary Care Provider [phone] Encounter Details Date Type Department Care Team (Late st Contact Info) Description 05/25/[address] [facility] [address] [place] [address] Social History Tobacco Use Types [...] 05/25/2024 4:00 PM Dalila Zhou RN * [place] Suicide Severity Rating Scale (Screener/Recent Self-Report) Question Answer Date of Assessment Author 1. Wish to be (Past 1 Month) No 025 4:00 PM Dalila Zhou RN 2. Non-Specific Active Suici bethany Thoughts (Past 1 Month) No 05/25/2024 4:00 PM Miki Zhou RN 6. Suicidal Behavior (Lifetime) No 4:00 PM Dalila Zhou RN documented as of this encounter Plan of Treatment Upcoming Encounters Date Type Department Care Team (Late st Contact Info) Description 03/08/2025 4:00 PM EST Office Visit [facility] Cardi[facility] Medicine [address] [facility], 5th Floor, [address] [place] [address] Hany Pedraza MD 55 [facility] [address] [place] [address] [email or web address] 03/10/2025 12:00 PM EST Office Visit [facility] Orthopaedic Spine [address] [facility], 3rd Floor, [address] [place] [address] Tye Sandhu MD 55 [facility] [address] [place] [address] [email or web address] U 03/10/2025 3:00 PM EST Office Visit [facility] [place] in [address] [address] Surya Hardin MD [address] [place] [address], [address] [place] [address] maria [email or web address] documented as of this encounter Visit Diagnoses Not on filedocumented in this encounter Care Teams Parboiler Relationship Specialty Start Date End Date Padmini Pierson MD [address] [place] [address] PCP - General 04/04/17 Jose Madsen DO [address] [place] [address] Orthopedics & Sports Medicine, [place] [address] [email or web address] Historical LMR Provider 01/17/17 Cass Reyes, OFELIAC [address] [place] [address] Orthopedics & Sports Medicine, [place] [address] [email or web address] Historical LMR Provider 01/17/17 documented as of this encounter Additional Source Comments The information contained in this document represents components of the legal health record. It is not the complete legal health record.[facility]
--- OUTSIDE RECORDS SUMMARY | 2025-02-24 15:44 | XMS_ITS | Encounter Summary ---
Author Organization [facility] Address [address] [employer] [facility] [address] [place] [address] Phone Care Team Providers Care Firer Retort Name Role Phone Jose Madsen DO Unavailable [phone] Cass Reyes PA-C Unavailable [phone] Padmini Pierson MD Primary Care Provider [phone] Encounter Details Date Type Department Care Team (Late st Contact Info) Description 02/05/2023 Procedure Pass [facility], Ct Scan - [address] [address] Social History Tobacco Use Types Packs/Day Years [...] Description 03/08/2025 4:00 PM EST Office Visit [facility] 32 [facility], 5th Floor, [address] [place] [address] Hany Pedraza MD 55 [facility] [address] [place] [address] [email or web address] 03/10/2025 12:00 PM EST Office Visit [facility] 55 [facility], 3rd Floor, [address] [place] [address] Tye Sandhu MD 55 [facility] [address] [place] [address] [email or web address] U 03/10/2025 3:00 PM EST Office Visit [facility] [place] in [address] [address] Surya Hardin MD [address] [place] [address], [address] [place] [address] maria [email or web address] documented as of this encounter Visit Diagnoses Not on filedocumented in this encounter Care Teams Firer Retort Relationship Specialty Start Date End Date Padmini Pierson MD [address] [place] [address] PCP - General 04/04/17 Jose Madsen DO [address] [place] [address] [facility] [place] [place] [address] [email or web address] Historical LMR Provider 01/17/17 Cass Reyes PA-C [address] [place] [address] Orthopedics & Sports Medicine, [place] [address] Historical LMR Provider 01/17/17 documented as of this encounter Additional Source Comments The information contained in this document represents components of the legal health record. It is not the complete legal health record.[facility]
--- OUTSIDE RECORDS SUMMARY | 2025-02-24 15:44 | XMS_ITS | Encounter Summary ---
Author Organization [facility] Address [address] [facility] [address] [place] [address] Phone Care Team Providers Care Food And Nutrition Supervisor Name Role Phone Jose Madsen DO Unavailable [phone] Cass Reyes PA-C Unavailable [phone] Padmini Pierson MD Primary Care Provider [phone] Encounter Details Date Type Department Care Team (Late st Contact Info) Description 12/12/2023 Procedure Pass [facility], [address] [address] Social History Tobacco Use Types Packs/Day Years [...] Description 03/08/2025 4:00 PM EST Office Visit [facility] [place] [place] 32 [facility], 5th Floor, [address] [place] [address] Hany Pedraza MD 55 [facility] [address] [place] [address] [email or web address] 03/10/2025 12:00 PM EST Office Visit [facility] [place] Spine 55 [facility], 3rd Floor, [address] [place] [address] Tye Sandhu MD [address] [place] [address] [address] [place] [address] [email or web address] 03/10/2025 3:00 PM EST Office Visit [facility] in [address] [address] Surya Hardin MD [address] [place] [address], [address] [place] [address] [email or web address] documented as of this encounter Visit Diagnoses Not on filedocumented in this encounter Care Teams Food And Nutrition Supervisor Relationship Specialty Start Date End Date Padmini Pierson MD [address] [place] [address] PCP - General 04/04/17 Jose Madsen DO 4 [facility] Orthopedics & Sports Medicine, [place] [address] [email or web address] Historical LMR Provider 01/17/17 Cass Reyes PA-C 4 [facility] Orthopedics & Sports Medicine, [place] [address] [email or web address] Historical LMR Provider 01/17/17 documented as of this encounter Additional Source Comments The information contained in this document represents components of the legal health record. It is not the complete legal health record.[facility]
--- OUTSIDE RECORDS SUMMARY | 2025-02-24 15:44 | XMS_ITS | Clinical Summary ---
Author Organization [facility] Address [facility] [address] [address] Phone Care Team Providers Care Floral Specialist Name Role Phone ChickasawJose DO Unavailable [phone] Cass Reyes PA-C Unavailable [phone] Padmini Pierson MD Primary Care Provider [phone] Allergies Active Allergy Reactions Criticality Noted Date Comments Gluten 06/16/2015 sensitivity Lactose 06/16/2015 Intolerant Sulfamethoxazole-Trimet hoprim Hives,Swelling 02/04/2008 Other reaction(s): Unknown Medications apremilast (OTEZLA) 30 mg tablet Take 30 mg by mouth 2 (two) times a day. Active cholecalciferol (VITAMIN D3) 25 MCG (1,000 unit) tablet Take 1,000 Units by mouth daily. Active butalbital-acet aminophen-caffe ine-codeine (FIORICET WITH CODEINE) 55-398-75-30 mg Cap Take by mouth every 4 [...] Description 03/08/2025 4:00 PM EST Office Visit [facility] Cardiovascular Medicine [address] [place] [address], 5th Floor, [address] [place] [address] Hany Pedraza MD 55 [facility] [address] [place] [address] [email or web address] 03/10/2025 12:00 PM EST Office Visit [facility] Orthopaedic Spine 55 [facility], 3rd Floor, [address] [place] [address] Tye Sandhu MD 55 [facility] [address] [place] [address] [email or web address] 03/10/2025 3:00 PM EST Office Visit [facility] in [address] [address] Surya Hardin MD 50 [facility], [address] [place] [address] [email or web address] Health Maintenance Due Date Last Done Comments DEPRESSION SCREENING 1994 HEPATITIS C SCREENING 2000 HIV ONE-TIME SCREENING (18-65 YEARS) 2000 PNEUMOCOCCAL VACCINES (0-49 years) (1 of 2 - PCV) 2001 PAP SMEAR 06/29/2003 MAMMOGRAM 2022 INFLUENZA VACCINE (#1) 2024 , 01/22/2022, 01/22/2022, Additional history exists COVID-19 VACCINE (2024- season) 2024 07/28/2021, 01/02/2021, 06/20/2020, Additional history [...] this topic Medical Devices Implanted Type Area Wood Patternmaker Device Identifier Shelf Expiration Date Model / Serial / Lot Tissue Graft 4.0v832aw Tendon Flexi Allo Semi Tendinosus Gracilis Frozen - [id number] Implanted:Qty: 1 on 09/09/2020 by Jose Madsen DO at [facility] BONETISSUE Right: Knee [employer] 08/02/2025 [facility] / [id number] / Graft Bone 1cc Dbx Allo Dbm Demineralized Matrix Freeze Dried Putty Syringe - [id number] Implanted:Qty: 1 on 05/25/2024 by Tye Sandhu MD at [facility] BONETISSUE N/A: Anterior Cervical MUSCULOSKELETAL TRANSPLANT 01/06/2026 [id number] / [id number] / Plate Plate Spine Cervical Screw Implanted:Qty: 2 Screw Spine Cervical Device Fixation Ultrabutton Adjustable - [id number] Implanted:Qty: 1 on 09/09/2020 by Jose Madsen DO at [facility] Right: Knee [employer] 07/09/2023 [id number] / / [id number] Screw Bone 8x25mm Interference Biosure Regenesorb Biocomposite Absorable - [id number] Implanted:Qty: 1 on 09/09/2020 by Jose Madsen DO at [facility] Right: Knee [employer] 06/14/2023 [id number] / / [id number] Screw Bone 2.6x7mm Spine Leverage Lateral Laminar Mass - [id number] Implanted:Qty: 3 on 06/07/2023 by Tye Sandhu MD at [facility] N/A: Posterior Cervical [employer] [id number] / / Screw Spine 2.6x5mm - [id number] Implanted:Qty: 4 on 06/07/2023 by Tye Sandhu MD at [facility] N/A: Posterior Cervical [employer] [id number] / / Lumbar Plate 8mm Sm 1 Level Leverage [place] Fixation Laminar - [id number] Implanted:Qty: 3 on 06/07/2023 by Tye Sandhu MD at [facility] N/A: Posterior Cervical [employer] [id number] / / Identiti Cervical Sa Spacer [id number] Degree Implanted:Qty: 1 on 05/25/2024 by Tye Sandhu MD at [facility] N/A: Anterior Cervical 07/10/2028 / NA / 3.5 X 12 Mm Screw Implanted:Qty: 2 on 05/25/2024 by Tye Sandhu MD at [facility] N/A: Anterior Cervical 07/04/2024 / NA / NA Insurance [facility] & B [facility] MEDICARE PART A & B O O O MEDICARE PART A & B O MEDICARE PART A & B [address] [place], [place] [id number] MEDICARE PART A & B O O MEDICARE PART A & B O Care Teams Floral Specialist Relationship Specialty Start Date End Date Padmini Pierson MD [address] [place] [address] PCP - General 04/04/17 Jose Madsen DO [address] [place] [address] Orthopedics & Sports Medicine, [facility] [place] [address] Historical LMR Provider 01/17/17 Cass Reyes PA-C [address] [place] [address] Orthopedics & Sports Medicine, [place] [address] Historical LMR Provider 01/17/17 Additional Source Comments The information contained in this document represents components of the legal health record. It is not the complete legal health record.[facility]
--- OUTSIDE RECORDS SUMMARY | 2025-02-24 15:44 | XMS_ITS | Encounter Summary ---
Author Organization [facility] Address [address] [place] [address] [place] [address] Phone Care Team Providers Care Bilingual Recruiter Name Role Phone Carol Briseno Unavailable [phone] Padmini Pierson MD Unavailable Jose Madsen DO Unavailable Cass Reyes PA-C Unavailable [phone] Padmini Pierson MD Primary Care Provider [phone] Encounter Details Date Type Department Care Team (Late st Contact Info) Description 12/11/2019 Procedure Pass [facility], [address] [address] Social History Tobacco Use Types Packs/Day Years [...] Description 03/08/2025 4:00 PM EST Office Visit [facility] 32 [facility], 5th Floor, [address] [place] [address] Hayn Pedraza MD 55 [facility] [address] [place] [address] [email or web address] 03/10/2025 12:00 PM EST Office Visit [facility] Orthopaedic Spine 55 [facility], 3rd Floor, [address] [place] [address] Tye Sandhu MD 55 [facility] [address] [place] [address] [email or web address] 03/10/2025 3:00 PM EST Office Visit [facility] in [address] [address] Surya Hardin MD 50 [facility], [address] [place] [address] [email or web address] documented as of this encounter Visit Diagnoses Not on filedocumented in this encounter Care Teams Bilingual Recruiter Relationship Specialty Start Date End Date Padmini Pierson MD [address] [place] [address] PCP - General 04/04/17 Carol Briseno PA [facility] [place] [address] Historical LMR Provider 01/17/17 2 Padmini Pierson MD [address] [place] [address] Historical LMR Provider 01/17/17 Jose Madsen DO 4 [facility] [place] [address] [email or web address] Historical LMR Provider 01/17/17 Cass Reyes PA-C [address] [place] [address] Orthopedics & Sports Medicine, [place] [address] Historical LMR Provider 01/17/17 documented as of this encounter Additional Source Comments The information contained in this document represents components of the legal health record. It is not the complete legal health record.[facility]
--- OUTSIDE RECORDS SUMMARY | 2025-02-24 15:44 | XMS_ITS | Encounter Summary ---
Author Organization [facility] Address [address] [place] [address] Phone Care Team Providers Care Casting Supervisor Name Role Phone Carol Briseno Unavailable [phone] Padmini Pierson MD Unavailable Jose Madsen DO Unavailable Cass Reyes PA-C Unavailable Padmini Pierson MD Primary Care Provider Encounter Details Date Type Department Care Team (Late st Contact Info) Description 08/15/2020 Prep for Surgery [facility] Orthopedics & Sports Medicine [address] [place] [address] Jose Madsen DO [address] [place] [address] Orthopedics & Sports Medicine, [facility] [place] [address] [email or web address] Rupture of anterior cruciate ligament of right [...] Description 03/08/2025 4:00 PM EST Office Visit [facility] [place] 32 [facility], 5th Floor, [address] [place] [address] Hany Pedraza MD 55 [facility] [address] [place] [address] [email or web address] 03/10/2025 12:00 PM EST Office Visit [facility] [place] Sp[place] 55 [facility], 3rd Floor, [address] [place] [address] Tye Sandhu MD 55 [facility] [address] [place] [address] [email or web address] 03/10/2025 3:00 PM EST Office Visit [facility] in [address] [address] Surya Hardin MD [address] [place] [address], [address] [place] [address] maria [email or web address] documented as of this encounter Visit Diagnoses Diagnosis Rupture of anterior cruciate ligament of right knee, subsequent encounter- Primary documented in this encounter Care Teams Casting Supervisor Relationship Specialty Start Date End Date Padmini Pierson MD [address] [place] [address] PCP - General 04/04/17 Carol Brisen[place] [address] [place] [address] Historical LMR Provider 01/17/17 2 Padmini Pierson MD [address] [place] [address] Historical LMR Provider 01/17/17 Jose Madsen DO 4 [facility] [address] [email or web address] Historical LMR Provider 01/17/17 Cass Reyes PA-C 4 [facility] Orthopedics & Sports Medicine, [facility] [place] [address] [email or web address] Historical LMR Provider 01/17/17 documented as of this encounter Additional Source Comments The information contained in this document represents components of the legal health record. It is not the complete legal health record.[facility]
--- OUTSIDE RECORDS SUMMARY | 2025-02-24 15:44 | XMS_ITS | Clinical Summary ---
Author Organization [address] [place] [address] Address [address] [place] [address] Phone Care Team Providers Care Automatic Buffer Name Role Phone Padmini Pierson MD Primary Care Provider [phone] Allergies Active Allergy Reactions Criticality Noted Date Comments Sulfamethoxazole-Trimethoprim Hives 2024 Medications propranoloL (INDERAL) 10 mg tablet TAKE 1 TABLET BY MOUTH THREE TIMES A DAY 270 tablet 1 08/08/19 Active Additional Information Patient taking differently: 20 mgoral2 times daily, Reported on 12/29/2024 midodrine (PROAMATINE) 5 mg tablet TAKE 1 TABLET BY MOUTH THREE TIMES A DAY 90 tablet 11 12/05/19 Active Additional Information Patient taking differently:5 mg oral2 times daily, Reported on 12/29/2024 methotrexate 2.5 mg tablet Take 7 tablets (17.5 mg total) by mouth 1 (one) time per week Follow directions carefully, and ask to explain any part you do not understand. Take exactly as directed. Active leucovorin 10 mg tablet Take 1 tablet (10 mg total) by mouth 1 (one) time each day Take with a full glass of water. Active pregabalin (LYRICA) 25 mg capsule Take 1 capsule (25 mg total) by mouth. 1 tab in am and 3 tabs in pm Active colchicine (MITIGARE) 0.6 mg capsule capsule 1 capsule (0.6 mg total) 3 (three) times a day. Active cyanocobalamin (VITAMIN B-12) 1,000 mcg/mL injection Inject 1 mL (1,000 mcg total) into the shoulder, thigh, or buttocks 1 (one) time. Active apremilast (Otezla) 30 mg tablet Take 30 mg by mouth 2 (two) times a day. Active diclofenac (VOLTAREN) 25 mg EC tablet Take 1 tablet (25 mg total) by mouth 2 (two) times a day. Do not crush, chew, or split. Active mirtazapine (REMERON MARTHA-TAB) 30 mg disintegrating tablet Dissolve 1 tablet (30 mg total) on top of the tongue at bedtime. Active tiZANidine (ZANAFLEX) 4 mg capsule Take 1 capsule (4 mg total) by mouth. ! TAB AM 2 TABS PM Active butalbital-acetami nophen-caffeine (FIORICET, ESGIC) 50-325-40 mg per tablet Take 1 tablet by mouth every 4 (four) hours if needed for headaches. Max Daily Amount: 6 tablets Active diazePAM (VALIUM) 5 mg tablet Take 1 tablet (5 mg total) by mouth every 8 (eight) hours if needed for anxiety. Max Daily Amount: 15 mg Active morphine (MS CONTIN) 15 mg 12 hr tablet Take 1 tablet (15 mg total) by mouth every 12 (twelve) hours. Max Daily Amount: 30 mg Active DULoxetine (CYMBALTA) [address] capsule Take 1 capsule (30 mg total) by mouth 2 (two) times a day. Do not crush or chew. Active fludrocortisone (FLORINEF) 0.1 mg tablet Take 1 tablet (0.1 mg total) by mouth 1 (one) time each day. 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 Prior tilt table test showed mostly vasopressor response. CT angiogram showed some mild proximal LAD plaque. She is not known to have any structural heart disease. Our OCT showed sinus rhythm with her symptoms. She has been tried on propranolol and midodrine. Assessment & Plan (12/29/2024 12:22 PM EDT): Suzy continues to struggle with recurrent syncope. She is very frustrated and I am going to have her wear another 30-day monitor to look for any bradycardia that might be treated with a pacemaker given her family members have done well with pacemakers who have had similar presentations. I am reluctant in a 44-year-old to place the pacemaker unless we can document bradycardia or pauses. It is not completely clear to me if these episodes are true vasodepressor syncope, cerebral blood flow abnormality or even possibly supratentorial. I did discuss using fludrocortisone but her blood pressure today on my exam was 118/82 even while standing with no lower blood pressures which would suggest that the fludrocortisone may not be helpful. I am going to have her stop the propranolol given her resting heart rate in the 50s and on the possibility that a higher heart rate is needed to overcome some vasodilatation. Clearly has not been effective in cutting off a vasovagal episode. Encounters Date Type Department Care Team Description 02/09/2025 Telephone [facility] Cardiology [facility] [address] [place] [address] Mihai Chaudhari MD 02/09/2025 Telephone [facility] [address] [place] [address] Mihai Chaudhari MD 01/10/2025 7:00 AM EDT Ancillary Procedure [facility] Cardiology [facility] [address] [place] [address] Syncope, unspecified syncope type 12/30/2024 Telephone [facility] [address] [place] [address] Mihai Chaudhari MD 12/29/2024 11:30 AM EDT Office Visit [facility] [address] [place] [address] Mihai Chaudhari MD Syncope, unspecified syncope type (Primary Dx); Vasovagal syncope from Last 3 Months Surgical History Surgery Date Site/Laterality Comments CHOLECYSTECTOMY PROCEDURE: MD LAPAROSCOPY SURG CHOLECYSTECTOMY SECTION PROCEDURE: HISTORICAL DELIVERY OTHER SURGICAL HISTORY 2013 Left PROCEDURE: MD UNLISTED PROCEDURE PELVIS/HIP JOINT; COMMENT: labral tear OTHER SURGICAL HISTORY - 2016 PROCEDURE: MD ARTHRD ANT INTERBODY MIN DSC CRV BELOW C2 Medical History Medical History Date Comments Cataract 05/25/2019 DX:Cataract; COM MENT: On right Chronic GERD DX:Chronic GERD Rib fracture DX:Rib fracture Stable asthma DX:Stable asthma Ankylosing spondylitis (CMS/ HCC V24, CMS/HCC V28) DX:Ankylosing spondylitis (H CC) Behcet's disease (CMS/HCC V2 4, CMS/[facility] V28) DX:Behcet's disease (HCC) Family History Medical [...] Date Smoking Tobacco: Former Smokeless Tobacco: Never Alcohol Use Standard Drinks/Week Comments Not Currently 0 (1 standard drink = 0.6 oz pur e alcohol) Comments Unknown Sex and Gender Information Value Date Recorded Sex Assigned at Not on file Legal Sex Female 6:53 PM EST Gender Identity Not on file Sexual Orientation Not on file Obstetrics History Last Filed Vital Signs Vital Sign Reading Time Taken Comments Blood Pressure 120/78 12/29/2024 11:42 AM EDT Pulse 53 12/29/2024 11:42 AM EDT Temperature - - Respiratory Rate - - Oxygen Saturation 97% 12/29/2024 11:42 AM EDT Inhaled Oxygen Concentration - - Weight 49.9 kg (110 lb) 12/29/2024 11:42 AM EDT Height 154.9 cm (5' 1 ) 12/29/2024 11:42 AM EDT Body Mass Index 20.78 12/29/2024 11:42 AM EDT Plan of Treatment Health Maintenance Due Date Last Done Comments Breast Cancer Screening 1982 Hepatitis A Vaccines (1 of 2 - Risk 2-dose series) 2001 Hepatitis B Vaccines (1 of 3 - 19+ 3-dose series) 2001 Pneumococcal Vaccine: Pediatrics (0 to 5 Years) and At-Risk Patients (6 to 49 Years) (1 of 2 - PCV) 2001 Cervical Cancer Screening: Pap Smear 06/29/2003 HPV Vaccines (1 - 3-dose SCDM series) 2009 HIV Screening 03/03/2022 Hepatitis C Screening 03/03/2022 Social Influencers of Health Screening 03/03/2022 Depression Screening 04/01/2024 COVID-19 Vaccine ( - season) 2024 07/28/2021, 01/02/2021, 06/20/2020, Additional history exists DTaP,Tdap,and Td Vaccines (2 - Td or Tdap) 06/10/2028 06/10/2018 RSV Immunization Adult Patients (1 - 1-dose 75+ series) 2057 Influenza Vaccine Completed 01/05/2025, , 01/22/2022, Additional history exists HIB Vaccines Aged Out No longer eligi [...] to complete this topic RSV Immunization Patients Under 20 months Aged Out No longer eligible based on patient's age to complete this topic Varicella Vaccines Aged Out No longer eligible based on patient's age to complete this topic Procedures Procedure Name Priority Date/Time Associated Diagnosis Comments CARDIAC ADJUNCT PSYCHOLOGY FACULTY MEMBER W/ CONNECTION (MCOT) Routine 01/12/2025 2:10 PM EDT Syncope, unspecified syncope type from Last 3 Months Results * CARDIAC ADJUNCT PSYCHOLOGY FACULTY MEMBER W/ CONNECTION (MCOT) (01/12/2025 2:10 PM EDT) Anatomical Region Laterality Modality Cardiac Diagnost ic Impressions 02/09/2025 2:33 PM EST The predominant rhythm was sinus rhythm with an average heart rate of 77 bpm and a maximum of 183 bpm. There were no significant atrial or ventricular arrhythmias. There were 112 patient triggered symptomatic events that all corresponded to sinus rhythm or sinus tachycardia. Narrative 02/09/2025 2:33 PM EST [facility] DI[facility]ST[facility]ING DEPARTMENT [address] [facility], [address], [place] [address] TEL: FAX: TYPE OF TEST 30 day ROCT monitor. DATES OF MONITORIN01/10/25- 02/04/25 REQUESTING PHYSICIAN: Mihai Chaudhari MD PRIMARY CARE PROVIDER: Padmini Pierson MD INDICATION: Syncope PRELIMINARY FINDINGS FROM FIRST CALL MEDICAL: 1. The predominant rhythm was sinus, with sinus arrhythmia. 2. The average heart rate was 77 bpm, minimum heart rate was 44 bpm, maximum heart rate was 183 bpm. 3. Total VE burden: < 0.1 % consisting of singles. 4. Total SVE burden: < 0.1 % consisting of singles. 5. There were 112 patient triggered symptomatic events. Mihai Chaudhari MD CV CARDIAC SERVICES PROCEDURES Final Result from Last 3 Months Insurance [facility] Care Teams Automatic Buffer Relationship Specialty Start Date End Date Padmini Pierson MD [address] [place] [address] PCP - General Internal Medicine 11/27/17
--- OUTSIDE RECORDS SUMMARY | 2025-02-24 15:44 | XMS_ITS | Encounter Summary ---
Author Organization [facility] Address [address] [facility] [address] [place] [address] Phone Care Team Providers Care Interface Designer Name Role Phone Jose Madsen DO Unavailable [phone] Cass Reyes PA-C Unavailable [phone] Padmini Pierson MD Primary Care Provider [phone] Encounter Details Date Type Department Care Team (Late st Contact Info) Description 11/27/2023 Procedure Pass [address] [place] [address] Social History Tobacco Use Types Packs/Day Years [...] Description 03/08/2025 4:00 PM EST Office Visit [facility] Cardiovascular Medicine 32 [facility], 5th Floor, [address] [place] [address] Hany Pedraza MD [address] [place] [address] [email or web address] 03/10/2025 12:00 PM EST Office Visit [facility] Orthopaedic Spine 55 [facility], 3rd Floor, [address] [place] [address] Tye Sandhu MD 55 [facility] [address] [place] [address] [email or web address] U 03/10/2025 3:00 PM EST Office Visit [facility] in [address] [address] Surya Hardin MD [address] [place] [address], [address] [place] [address] maria [email or web address] documented as of this encounter Visit Diagnoses Not on filedocumented in this encounter Care Teams Interface Designer Relationship Specialty Start Date End Date Padmini Pierson MD [address] [place] [address] PCP - General 04/04/17 Jose Madsen DO [address] [place] [address] Orthopedics Sports [facility], [place] [address] [email or web address] Historical LMR Provider 01/17/17 Cass Reyes PA-C [address] [place] [address] Orthopedics Sports [facility], [place] [address] [email or web address] Historical LMR Provider 01/17/17 documented as of this encounter Additional Source Comments The information contained in this document represents components of the legal health record. It is not the complete legal health record.[facility]
--- OUTSIDE RECORDS SUMMARY | 2025-02-24 15:44 | XMS_ITS | Encounter Summary ---
Author Organization [facility] Address [address] [place] [address] Phone Care Team Providers Care Treadle Cut Off Saw Operator Name Role Phone Carol Briseno Unavailable [phone] Padmini Pierson MD Unavailable Jose Madsen DO Unavailable Cass Reyes PA-C Unavailable [phone] Padmini Pierson MD Primary Care Provider Reason for Referral * MRI/CAT Scan - Closed Specialty Diagnoses / Procedures Referred By Letha damian Referred To Contact Radiology Diagnoses Derangement, knee internal, right Behcet's syndrome Procedures MRI Knee (Right) Quentin Zamora PA Phone: tel: fax: mailto:[email or web address] Referral ID Status Reason Start Date Expiration Date Visits Re quested Visits Authorized [id number] Closed 05/06/2020 10/31/2020 1 0 Encounter Details Date Type Department Care Team (Late st Contact Info) Description 05/04/2020 Ancillary Orders Virtual Department [address] [place] [address] Quentin Zamora PA [address] [place] [address] [email or web address] Derangement, knee internal, right; Behcet's syndrome Social [...] Description 03/08/2025 4:00 PM EST Office Visit [facility] Cardiovascular Medicine 32 [facility], 5th Floor, [address] [place] [address] Hany Pedraza MD [address] [place] [address] [email or web address] 03/10/2025 12:00 PM EST Office Visit [facility] Orthopaedic Spine 55 [facility], 3rd Floor, [address] [place] [address] Tye Sandhu MD [address] [place] [address] [address] [place] [address] [email or web address] U 03/10/2025 3:00 PM EST Office Visit [facility] in [address] [address] Surya Hardin MD [address] [place] [address], [address] [place] [address] maria [email or web address] documented as of this encounter Results [...] syndrome documented in this encounter Care Teams Treadle Cut Off Saw Operator Relationship Specialty Start Date End Date Padmini Pierson MD [address] [place] [address] PCP - General 04/04/17 Carol Brisen[place] [address] Historical LMR Provider 01/17/17 2 Padmini Pierson MD [address] [place] [address] Historical LMR Provider 01/17/17 Jose Madsen DO [address] [place] [address] Orthopedics & Sports Medicine, [place] [address] [email or web address] Historical LMR Provider 01/17/17 Cass Reyes PA-C [address] [place] [address] Orthoped[facility] Sports Medicine, [place] [address] [email or web address] Historical LMR Provider 01/17/17 documented as of this encounter Additional Source Comments The information contained in this document represents components of the legal health record. It is not the complete legal health record.[facility]
--- OUTSIDE RECORDS SUMMARY | 2025-02-24 15:44 | XMS_ITS | Encounter Summary ---
Author Organization [facility] Address [address] [place] [address] [address] [place] [address] Phone Care Team Providers Care Drawer Maker Name Role Phone Carol Briseno Unavailable Padmini Pierson MD Unavailable Jose Madsen DO Unavailable Cass Reyes PA-C Unavailable [phone] Padmini Pierson MD Primary Care Provider [phone] Encounter Details Date Type Department Care Team (Late st Contact Info) Description 02/07/2017 Ancillary Orders Virtual Department [address] [place] [address] Quentin Zamora PA [address] [place] [phone] [email or web address] Arthrodesis status Social History Tobacco Use Types [...] [facility] [place] Cardi[place] Medicine 32 [facility], 5th Floor, [address] [place] [address] Hany Pedraza MD [address] [facility] [address] [place] [address] [email or web address] 03/10/2025 12:00 PM EST Office Visit [facility] [place] Orthopaedic Spine 55 [facility], 3rd Floor, [address] [place] [address] Tye Sandhu MD 55 [facility] [address] [place] [address] [email or web address] [email or web address]. U 03/10/2025 3:00 PM EST Office Visit [facility] in [address] [address] Surya Hardin MD [address] [place] [address], [address] [place] [address] maria [email or web address] documented as of this encounter Visit Diagnoses Diagnosis Arthrodesis status documented in this encounter Care Teams Drawer Maker Relationship Specialty Start Date End Date Padmini Pierson MD [address] [place] [address] PCP - General 04/04/17 Carol Briseno PA [facility] [place] [address] Historical LMR Provider 01/17/17 2 Padmini Pierson MD [address] [place] [address] Historical LMR Provider 01/17/17 Jose Madsen DO [address] [place] [address] [facility] [place] [address] Historical LMR Provider 01/17/17 Cass Reyes, PAEfraC 4 [facility] Orthopedics & Sports Medicine, [facility] [place] [address] [email or web address] Historical LMR Provider 01/17/17 documented as of this encounter Additional Source Comments The information contained in this document represents components of the legal health record. It is not the complete legal health record.[facility]
--- OUTSIDE RECORDS SUMMARY | 2025-02-24 15:44 | XMS_ITS | Encounter Summary ---
Author Organization [facility] Address [address] [place] [address] Phone Care Team Providers Care Parts Data Writer Name Role Phone Carol Briseno Unavailable [phone] Padmini Pierson MD Unavailable Jose Madsen DO Unavailable Cass Reyes PA-C Unavailable [phone] Padmini Pierson MD Primary Care Provider Encounter Details Date Type Department Care Team (Late st Contact Info) Description 05/04/2020 Procedure Pass [facility], [address] [address] Social History Tobacco Use Types Packs/Day Years [...] Description 03/08/2025 4:00 PM EST Office Visit [facility] Cardiovascular Medicine 32 [facility], 5th Floor, [address] [place] [address] Hany Pedraza MD 55 [facility] [address] [place] [address] [email or web address] [email or web address] [email or web address] 03/10/2025 12:00 PM EST Office Visit [facility] Orthopaedic Spine [address] [facility], 3rd Floor, [address] [place] [address] Tye Sandhu MD 55 [facility] [address] [place] [address] [email or web address]. U 03/10/2025 3:00 PM EST Office Visit [facility] in [address] [address] Surya Hardin MD [address] [place] [address], [address] [place] [address] maria [email or web address] documented as of this encounter Visit Diagnoses Not on filedocumented in this encounter Care Teams Parts Data Writer Relationship Specialty Start Date End Date Padmini Pierson MD [address] [place] [address] PCP - General 04/04/17 Carol [place] [address] [address] Historical LMR Provider 01/17/17 2 Padmini Pierson MD [address] [place] [address] Historical LMR Provider 01/17/17 Jose Madsen DO [address] [place] [address] Orthopedics & Sports Medicine, [place] [address] [email or web address] Historical LMR Provider 01/17/17 Cass Reyes PA-C 4 [facility] Orthopedics & Sports [facility], [place] [address] [email or web address] Historical LMR Provider 01/17/17 documented as of this encounter Additional Source Comments The information contained in this document represents components of the legal health record. It is not the complete legal health record.[facility]
--- OUTSIDE RECORDS SUMMARY | 2025-02-24 15:44 | XMS_ITS | Encounter Summary ---
Author Organization [facility] Address [address] [facility] [address] [place] [address] Phone Care Team Providers Care Assistant Clinical Director Name Role Phone Jose Madsen DO Unavailable [phone] Cass Reyes PA-C Unavailable [phone] Padmini Pierson MD Primary Care Provider [phone] Encounter Details Date Type Department Care Team (Late st Contact Info) Description 12/12/2023 Procedure Pass [facility], Ct Scan - [address] [address] Social History Tobacco Use Types Packs/Day Years [...] [facility] 32 [facility], 5th Floor, [address] [place] [address] Hany Pedraza MD [address] [place] [address] [address] [place] [address] [email or web address] 03/10/2025 12:00 PM EST Office Visit [facility] Orthopaedic Spine 55 [facility], 3rd Floor, [address] [place] [address] Tye Sandhu MD [address] [place] [address] [address] [place] [address] [email or web address] U 03/10/2025 3:00 PM EST Office Visit [facility] in [address] [address] Surya Hardin MD [address] [place] [address], [address] [place] [address] maria [email or web address] documented as of this encounter Visit Diagnoses Not on filedocumented in this encounter Care Teams Assistant Clinical Director Relationship Specialty Start Date End Date Padmini Pierson MD [address] [place] [address] PCP - General 04/04/17 Jose Madsen DO 4 [facility] Orthopedics & Sports Medicine, [facility] [place] [address] [email or web address] Historical LMR Provider 01/17/17 Cass Reyes PA-C 4 [facility] Orthopedics & Sports Medicine, [facility] [place] [address] [email or web address] Historical LMR Provider 01/17/17 documented as of this encounter Additional Source Comments The information contained in this document represents components of the legal health record. It is not the complete legal health record.[facility]
--- OUTSIDE RECORDS SUMMARY | 2025-02-24 15:44 | XMS_ITS | Encounter Summary ---
Author Organization [facility] Address [address] [employer] [facility] [address] [place] [address] Phone Care Team Providers Care Swimming Professor Name Role Phone Jose Madsen DO Unavailable [phone] Cass Reyes PA-C Unavailable [phone] Padmini Pierson MD Primary Care Provider [phone] Encounter Details Date Type Department Care Team (Late st Contact Info) Description 06/07/2023 Procedure Pass [facility] PERIOPERATIVE DEPT [address] [place] [address] Social History Tobacco Use Types [...] 6:00 PM EST Gage Mansfield, RN * [place] Suicide Severity Rating Scale (Screener/Recent Self-Report) Question Answer Date of Assessment Author 1. Wish to be (Past 1 Month) No 06/07/2023 6:00 PM Gage Lackey, JARRETT 2. Non-Specific Active Suici bethany Thoughts (Past 1 Month) No 06/07/2023 6:00 PM EST Blu Mansfield RN 6. Suicidal Behavior (Lifetime) No 6:00 PM Gage Lackey RN documented as of this encounter Plan of Treatment Upcoming Encounters Date Type Department Care Team (Late st Contact Info) Description 03/08/2025 4:00 PM EST Office Visit [facility] Cardiovascular Medicine 32 [facility], 5th Floor, [address] [place] [address] Hany Pedraza MD 55 [facility] [address] [place] [address] [email or web address] 03/10/2025 12:00 PM EST Office Visit [facility] Orthopaedic Spine 55 [facility], 3rd Floor, [address] [place] [address] Tye Sandhu MD 55 [facility] [address] [place] [address] [email or web address]. U 03/10/2025 3:00 PM EST Office Visit [facility] in [address] [address] Surya Hardin MD [address] [place] [address], [address] [place] [address] maria documented as of this encounter Visit Diagnoses Not on filedocumented in this encounter Care Teams Swimming Professor Relationship Specialty Start Date End Date Padmini Pierson MD 9 [place] [address] PCP - General 04/04/17 Jose Madsen DO [address] [place] [address] Orthopedics & Sports Medicine, [facility] [place] [address] [email or web address] Historical LMR Provider 01/17/17 Cass Reyes PA-C [address] [place] [address] Orthopedics & Sports Medicine, [facility] [place] [address] [email or web address] Historical LMR Provider 01/17/17 documented as of this encounter Additional Source Comments The information contained in this document represents components of the legal health record. It is not the complete legal health record.[facility]
--- OUTSIDE RECORDS SUMMARY | 2025-02-24 15:44 | XMS_ITS | Encounter Summary ---
Author Organization [facility] Address [address] [place] [address] Phone Care Team Providers Care Teacher Nursery [employer] Name Role Phone Carol Briseno Unavailable [phone] Padmini Pierson MD Unavailable Jose Madsen DO Unavailable Cass Reyes PA-C Unavailable [phone] Padmini Pierson MD Primary Care Provider [phone] Reason for Referral * MRI/CAT Scan - Closed Specialty Diagnoses / Procedures Referred By Letha damian Referred To Contact Radiology Diagnoses Left hip pain Behcet's disease Procedures MRI Hip Arthrogram (Left) Quentin Zamora PA Phone: tel: fax: mailto:[email or web address] Referral ID Status Reason Start Date Expiration Date Visits Re quested Visits Authorized [id number] Closed 12/01/2019 05/29/2020 1 1 * - Closed Specialty Diagnoses / Procedures Referred By Letha damian Referred To Contact Radiology Diagnoses Left hip pain Behcet's disease Procedures [place] Hip Arthrogram (Left) Quentin Zamora PA Phone: tel: fax: mailto:[email or web address] Referral ID Status Reason Start Date Expiration Date Visits Re quested Visits Authorized [id number] Closed 12/11/2019 12/10/2020 1 1 Encounter Details Date Type Department Care Team (Latest Contact Info) Description 12/11/2019 Transcribe Orders Virtual Department 30 [place] [address] Quentin Zamora PA [address] [place] [address] [email or web address] Left hip pain (Primary Dx); Behcet's disease [...] Description 03/08/2025 4:00 PM EST Office Visit [facility] Cardiovascular Medicine 32 [facility], 5th Floor, [address] [place] [address] Hany Pedraza MD [address] [address] [email or web address] 03/10/2025 12:00 PM EST Office Visit [facility] Orthopaedic Spine 55 [facility], 3rd Floor, [address] [place] [address] Tye Sandhu MD 55 [facility] 3A [place] [address] [email or web address] 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 FINDINGS: ENTIRE PELVIS: No fracture, [...] ARTHROGRAM (LEFT) COMPARISON: Left hip x-ray 06/02/2014, industrial relations director x-ray 12/25/2019. FINDINGS: ENTIRE PELVIS: No fracture, [...] 0 min. 17 sec; 2 Images. POS [id number] Narrative 12/25/2019 11:46 AM EDT Before commencing the procedure, the risks and benefits of the procedure are discussed with the patient including specific risks of hemorrhage, and infection. The patient gave written and verbal consent to proceed. Before commencing the procedure, side of concern is confirmed with the patient and site marking occurred. 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 The left hip was [...] confirmed with thepatient and site marking occurred. 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 The left hip was [...] 0 min. 17 sec; 2 Images. POS [id number] Quentin MALDONADO IR MSK Final Resul t documented in this encounter Visit Diagnoses Diagnosis Left hip pain- Primary Pain in joint, pelvic region and thigh Behcet's disease Behcet's syndrome Left hip pain Pain in joint, pelvic region and thigh Behcet's disease Behcet's syndrome Left hip pain Pain in joint, pelvic region and thigh Behcet's disease Behcet's syndrome documented in this encounter Care Teams Teacher Nursery [employer] Relationship Specialty Start Date End Date Padmini Pierson MD [address] [place] [address] PCP - General 04/04/17 Carol [place] [place] [address] Historical LMR Provider 01/17/17 2 Padmini Pierson MD [address] [place] [address] Historical LMR Provider 01/17/17 Jose Madsen DO 4 [facility] [place] [address] [email or web address] Historical LMR Provider 01/17/17 Cass Reyes PA-C 4 [facility] Orthopedics & Sports [facility], [facility] [place] [address] [email or web address] Historical LMR Provider 01/17/17 documented as of this encounter Additional Source Comments The information contained in this document represents components of the legal health record. It is not the complete legal health record.[facility]
== END 2025-02-24 13:28 | disposition home or self-care (01) ==
LOC: HO.RHES 12:43
PROVIDERS: Visit Provider Internal Medicine Rheumatology
DX: M35.2 Behcet's disease (principal); M46.1 Sacroiliitis, not elsewhere classified
CPT/HCPCS: 99214; G2211